=== PATIENT | female | born 1960 | race Caucasian/White ===

== ENCOUNTER 2021-07-05 18:19 | Emergency (ER) | payer MEDICAID, SELFPAY ==
[2021-07-05 18:19] VITALS: BP 136/91; PULSE 80; RESP 18; TEMP 36.7; O2SAT 98; BMI 27.3
[2021-07-05 18:44] VITALS: BP 136/90; PULSE 79; RESP 16; O2SAT 97
--- NOTE | 2021-07-05 18:51 | XR_ITS ---
PROCEDURE INFORMATION: Exam: XR Chest Exam date and time: 07/05/2021 6:51 PM Age: 60 years old Clinical indication: Cough TECHNIQUE: Imaging protocol: XR of the chest. Views: 1 view. Total images: 1 COMPARISON: No relevant prior studies available. FINDINGS: Lungs: Question mild apical hyperlucency, suspect COPD. Pulmonary vasculature grossly normal. No gross pulmonary infiltrates or edema pattern. Mildly increased basilar attenuation felt to be related to extrinsic breast soft tissues. Pleural spaces: No pleural effusion. No pneumothorax. Heart/Mediastinum: Heart size normal. No tracheal/mediastinal shift. Vasculature: Mild aortic ectasia/tortuosity. Bones/joints: No acute osseous abnormalities are identified. IMPRESSION: 1. No acute thoracic process. 2. Suspect COPD.
[2021-07-05 18:57] LABS: Coronavirus 19, PCR Not Detected (NotDetected); Influenza A, PCR Not Detected (NotDetected); Influenza B, PCR Not Detected (NotDetected)
[2021-07-05 19:09] LABS: Basophils % 0.6 % (0.1-2.0); Chloride 101 mmol/L (98-107); Eosinophils # 0.3 K/mm3 (0.0-0.4); Eosinophils % 4.6 % (0.1-12.0); Hematocrit 40.4 % (37.0-47.0); Hemoglobin 13.7 g/dL (12.2-16.2); Lymphocytes # 2.3 K/mm3 (0.7-4.5); Lymphocytes % 35.8 % (10-50); Mean Corpuscular HGB Conc 33.9 g/dL (31.8-35.4); Mean Corpuscular Hemoglobin 28.2 pg (27.0-31.2); Mean Corpuscular Volume 83.2 fl (81-99); Monocytes # 0.3 K/mm3 (0.1-1.0); Monocytes % 5.4 % (1.7-9.3); Neutrophils # 3.4 K/mm3 (1.8-7.8); Neutrophils % 53.6 % (37.0-80.0); Platelet Count 225 K/mm3 (142-424); Potassium 3.9 mmoL/L (3.5-5.1); Red Blood Count 4.85 M/mm3 (4.20-5.40); Red Cell Distribution Width 13.5 % (11.5-17.5); Sodium 142 mmol/L (136-145); White Blood Count 6.4 K/mm3 (4.8-10.8)
[2021-07-05 19:12] LABS: Alanine Aminotransferase 22 U/L (12-78); Albumin Level 4.6 g/dl (3.5-5.0); Albumin/Globulin Ratio 1.6 (1.1-1.8); Alkaline Phosphatase 103 U/L (38-126); Anion Gap 12.9 mEq/L (5-15); Aspartate Amino Transferase 29 U/L (14-36); Bilirubin,Total 0.3 mg/dl (0.2-1.3); Carbon Dioxide 32 mmol/L (22.0-30.0); Globulin 2.8 g/dL (1.3-3.2); Glucose 108 mg/dl (74-100); Total Protein,Serum 7.4 g/dl (6.3-8.2)
[2021-07-05 19:17] LABS: Blood Urea Nitrogen 16 mg/dl (7-17); Creatinine Clearance Estimated 59 mL/min (50-200); Estimated Glomerular Filt Rate 85 ml/min (>60); GFR (African American) 103 ML/MIN (>60)
[2021-07-05 19:34] LABS: Lactic Acid 1.1 mmol/L (0.7-2.1)
[2021-07-05 20:01] VITALS: PULSE 72; PULSE 74
--- NOTE | 2021-07-05 20:20 | HMH.EDGENADL ---
ED Disposition Clinical Impression: COPD exacerbation Disposition: Home, Self-Care Condition on Discharge: Good Instructions: Chronic Obstructive Pulmonary Disease, DI for Shortness of Breath, DI for Chronic Obstructive Pulmonary Disease Additional Instructions: Patient will follow up with primary care physician in 2-3 days for further management. Please continue to drink plenty of water and eat 3 balanced meals a day. please use your inhaler 3-4 puffs every 6 hours for the next 2 days and then use as needed. Please return back to the emergency department for any concerning symptoms such as difficulty breathing, chest pain, inability to eat and drink or any other worsening symptoms. You will be notified of COVID results in 24 hours. Prescriptions: Albuterol Sulfate [Albuterol 0.042% 1.25mg/3mL neb] 1.25 mg IH NEEDED PRN #1 ml PRN Reason: Shortness Of Breath Transmission Status: Received by [facility] Referrals: Florian Correa MD [Primary Care Provider] - Time of Disposition: 20:35 - Critical Care Critical Care Time: No Attestation: On 07/05/21, the high probability of a clinically significant, sudden or life threatening deterioration of the following system(s) required my full and direct attention, intervention and personal management. The time I documented below is in addition to time spent performing reported procedures but includes the following listed in this critical care notation. Medical Decision Making - Medical Records Medical records reviewed: Yes: I reviewed the patient's medical records. - Roland Inquiry Pt receiving controlled substance: No Vital Signs: 07/05/21 18:19 07/05/21 18:44 07/05/21 20:01 Temperature 98.0 F Temperature Source Oral Pulse Rate 79 74 Pulse Rate [Right Radial] 80 Respiratory Rate 18 16 Blood Pressure 136/90 Blood Pressure [Right Arm] 136/91 H Blood Pressure Mean 107 Blood Pressure Mean [Right Arm] 106 Blood Pressure Source [Right Arm] Automatic Cuff Blood Pressure Position [Right Arm] Sitting 02 Sat by Pulse Oximetry 98 97 Oxygen Delivery Method Room Air 07/05/21 20:30 Temperature 98.0 F Temperature Source Oral Pulse Rate 71 Pulse Rate [Right Radial] Respiratory Rate 18 Blood Pressure 137/75 Blood Pressure [Right Arm] Blood Pressure Mean Blood Pressure Mean [Right Arm] Blood Pressure Source [Right Arm] Blood Pressure Position [Right Arm] 02 Sat by Pulse Oximetry Oxygen Delivery Method - Lab Data Lab results reviewed: Yes: I reviewed the patient's lab results. Lab Results 07/05/21 18:29: WBC 6.4, RBC 4.85, Hgb 13.7, Hct 40.4, MCV 83.2, MCH 28.2, MCHC 33.9, RDW 13.5, Plt Count 225, MPV 8.0, Neut % (Auto) 53.6, Lymph % (Auto) 35.8, [place] % (Auto) 5.4, Eos % (Auto) 4.6, Baso % (Auto) 0.6, Neut # (Auto) 3.4, Lymph # (Auto) 2.3, [place] # (Auto) 0.3, Eos # (Auto) 0.3, Baso # (Auto) 0.0 07/05/21 18:29: Sodium 142, Potassium 3.9, Chloride 101, Carbon Dioxide 32 H, Anion Gap 12.9, BUN 16, Creatinine 0.70, Estimated Creat Clear 59, Estimated GFR 85, Est GFR ( Amer) 103, Glucose 108 H, Calcium 9.0, Total Bilirubin 0.3, AST 29, ALT 22, Alkaline Phosphatase 103, Total Protein 7.4, Albumin 4.6, Globulin 2.8, Albumin/Globulin Ratio 1.6 07/05/21 18:29: Lactate 1.1 Result diagrams: 07/05/21 18:29 07/05/21 18:29 Orders (Tests/Meds): ED MEDICATIONS Discontinued Medications Generic Name Dose Route Start Last Admin Trade Name Freq PRN Reason Stop Dose Admin Albuterol/Ipratropium 3 ml 07/05/21 19:44 07/05/21 20:01 Ipratropium/Albuterol 3 Ml [facility] 07/05/21 19:45 3 ml ONCE ONE Administration Dexamethasone Sodium Phosphate 8 mg 07/05/21 19:44 07/05/21 20:07 Dexamethasone 4mg/Ml 1ml Vial IV 07/05/21 19:45 8 mg ONCE ONE Administration ORDERS Category Date Time Status Rapid PCR Covid and Flu A/B Stat Lab 07/05/21 18:29 Received Blood Culture Stat Micro 07/05/21 18: Received Matthew
[2021-07-05 20:30] VITALS: BP 137/75; PULSE 71; RESP 18; TEMP 36.7; O2SAT 97
== END 2021-07-05 21:28 | disposition home or self-care (01) ==
PROVIDERS: Emergency Provider Student in an Organized Health Care Education/Training Program; PCP Family Medicine
DX: J44.1 Chronic obstructive pulmonary disease with (acute) exacerbation (principal); F17.210 Nicotine dependence, cigarettes, uncomplicated; Z20.822 Contact with and (suspected) exposure to COVID-19
CPT/HCPCS: 71045; 80053; 83605; 85025; 87040; 96374; 96375; 99283; C9803; U0003; U0005

== ENCOUNTER 2021-07-13 18:01 | Emergency (ER) | payer MEDICAID, SELFPAY ==
[2021-07-13 18:02] VITALS: BP 140/80; PULSE 85; RESP 18; TEMP 36.9; O2SAT 98; BMI 24.4
--- NOTE | 2021-07-13 18:20 | HMH.EDGENADL ---
ED Disposition Clinical Impression: Seizure disorder Disposition: Home, Self-Care Condition on Discharge: Good Instructions: DI for Seizure Disorder -- Adult Additional Instructions: Continue current medications. Follow-up with Dr. Yost for recurrent seizures or further problems. Additional instructions for SEIZURE OR LOSS OF CONSCIOUSNESS/POSSIBLE SEIZURE: NO DRIVING, BIKE RIDING, SWIMMING, TUB BATHING, LADDERS UNTIL CLEARED BY DOCTOR. RETURN IF SEIZURE RECURS. NO ALCOHOL OR STREET DRUGS. See your physician as soon as possible for follow-up. Return to the emergency department if seizure recurs. Referrals: Florian Correa MD [Referring] - - Critical Care Critical Care Time: No Attestation: On , the high probability of a clinically significant, sudden or life threatening deterioration of the following system(s) required my full and direct attention, intervention and personal management. The time I documented below is in addition to time spent performing reported procedures but includes the following listed in this critical care notation. Medical Decision Making - Roland Inquiry Pt receiving controlled substance: No Vital Signs: 07/13/21 18:02 07/13/21 19:30 Temperature 98.5 F Temperature Source Oral Pulse Rate 82 Pulse Rate [Left Radial] 85 Respiratory Rate 18 Blood Pressure 138/84 Blood Pressure [Right Arm] 140/80 Blood Pressure Mean 102 Blood Pressure Mean [Right Arm] 100 Blood Pressure Source [Right Arm] Automatic Cuff Blood Pressure Position [Right Arm] Sitting 02 Sat by Pulse Oximetry 98 95 Oxygen Delivery Method Room Air - Lab Data Lab Results 07/13/21 18:09: WBC 6.3, RBC 4.87, Hgb 14.0, Hct 42.1, MCV 86.6, MCH 28.8, MCHC 33.3, RDW 13.5, Plt Count 222, MPV 8.5, Neut % (Auto) 52.7, Lymph % (Auto) 35.6, [place] % (Auto) 5.3, Eos % (Auto) 5.2, Baso % (Auto) 1.2, Neut # (Auto) 3.3, Lymph # (Auto) 2.3, [place] # (Auto) 0.3, Eos # (Auto) 0.3, Baso # (Auto) 0.1 07/13/21 18:09: Sodium 140, Potassium 3.4 L, Chloride 101, Carbon Dioxide 29, Anion Gap 13.4, BUN 17, Creatinine 0.70, Estimated Creat Clear 53, Estimated GFR 85, Est GFR ( Amer) 103, Glucose 142 H, Calcium 9.3, Total Bilirubin 0.4, AST 30, ALT 26, Alkaline Phosphatase 99, Total Protein 7.1, Albumin 4.3, Globulin 2.8, Albumin/Globulin Ratio 1.5 Result diagrams: 07/13/21 18:09 07/13/21 18:09 Orders (Tests/Meds): ORDERS Category Date Time Status Levetiracetam (Keppra) Routine Lab 07/13/21 18:09 Received Trop I [Troponin I] Stat Lab 07/13/21 18:09 Received Troponin I Q3H Lab 07/13/21 22:00 Ordered Troponin I Q3H Lab 07/14/21 01:00 Ordered Urinalysis and Microscopic Stat Lab 07/13/21 19:47 Received - CT Data CT Scan: Head, C-Spine Time Received: 19:[address] Reviewed: Yes: I have viewed the radiologist's interpretation Findings Narrative: PROCEDURE INFORMATION: Exam: CT Head Without Contrast Exam date and time: 07/13/2021 6:30 PM Age: 60 years old Clinical indication: Injury or trauma; Fall; Additional info: Seizure, fell and hit head, neck pain TECHNIQUE: Imaging protocol: Computed tomography of the head without contrast. Radiation optimization: All CT scans at this facility use at least one of these dose optimization techniques: automated exposure control; mA and/or kV adjustment per patient size (includes targeted exams where dose is matched to clinical indication); or iterative reconstruction. COMPARISON: No relevant prior studies available. FINDINGS: Brain: No hemorrhage, mass effect or midline shift. Age-related atrophy and chronic white matter ischemic changes, with no evidence of an acute intracranial abnormality. Cerebral ventricles: No ventriculomegaly. Paranasal sinuses: Visualized sinuses are unremarkable. No fluid levels. Mastoid air cells: Visualized mastoid air cells are well aerated. Bones/joints: No acute fracture. Soft tissues: No a
--- NOTE | 2021-07-13 18:30 | CT_ITS ---
PROCEDURE INFORMATION: Exam: CT Head Without Contrast Exam date and time: 07/13/2021 6:30 PM Age: 60 years old Clinical indication: Injury or trauma; Fall; Additional info: Seizure, fell and hit head, neck pain TECHNIQUE: Imaging protocol: Computed tomography of the head without contrast. Radiation optimization: All CT scans at this facility use at least one of these dose optimization techniques: automated exposure control; mA and/or kV adjustment per patient size (includes targeted exams where dose is matched to clinical indication); or iterative reconstruction. COMPARISON: No relevant prior studies available. FINDINGS: Brain: No hemorrhage, mass effect or midline shift. Age-related atrophy and chronic white matter ischemic changes, with no evidence of an acute intracranial abnormality. Cerebral ventricles: No ventriculomegaly. Paranasal sinuses: Visualized sinuses are unremarkable. No fluid levels. Mastoid air cells: Visualized mastoid air cells are well aerated. Bones/joints: No acute fracture. Soft tissues: No acute changes IMPRESSION: 1. No hemorrhage, mass effect or midline shift. 2. Age-related atrophy and chronic white matter ischemic changes, with no evidence of an acute intracranial abnormality.
--- NOTE | 2021-07-13 18:30 | CT_ITS ---
PROCEDURE INFORMATION: Exam: CT Cervical Spine Without Contrast Exam date and time: 07/13/2021 6:30 PM Age: 60 years old Clinical indication: Injury or trauma; Fall; Additional info: Seizure, fell and hit head, neck pain TECHNIQUE: Imaging protocol: Computed tomography images of the cervical spine without contrast. Radiation optimization: All CT scans at this facility use at least one of these dose optimization techniques: automated exposure control; mA and/or kV adjustment per patient size (includes targeted exams where dose is matched to clinical indication); or iterative reconstruction. COMPARISON: CR XR CHEST PORTABLE 07/05/2021 7:07 PM FINDINGS: Bones/joints: There is a nonspecific reversal of the normal cervical lordosis. There is no evidence of acute fracture. Discs/Spinal canal/Neural foramina: The cervical spine demonstrates mild degenerative changes at multiple levels. Disc space narrowing and bilateral neural foraminal narrowing noted C5-C6, C6-C7 and C7-T1. Prevertebral Space: No prevertebral soft tissue swelling is present. Lungs: Lung apices are normal. Soft tissues: Unremarkable. IMPRESSION: 1. There is a nonspecific reversal of the normal cervical lordosis. 2. The cervical spine demonstrates mild degenerative changes at multiple levels. 3. No evidence of acute fracture.
[2021-07-13 18:44] LABS: Basophils # 0.1 K/mm3 (0-0.2); Basophils % 1.2 % (0.1-2.0); Eosinophils # 0.3 K/mm3 (0.0-0.4); Eosinophils % 5.2 % (0.1-12.0); Hematocrit 42.1 % (37.0-47.0); Lymphocytes # 2.3 K/mm3 (0.7-4.5); Lymphocytes % 35.6 % (10-50); Mean Corpuscular HGB Conc 33.3 g/dL (31.8-35.4); Mean Corpuscular Hemoglobin 28.8 pg (27.0-31.2); Mean Corpuscular Volume 86.6 fl (81-99); Mean Platelet Volume 8.5 fl (7.4-10.4); Monocytes # 0.3 K/mm3 (0.1-1.0); Monocytes % 5.3 % (1.7-9.3); Neutrophils # 3.3 K/mm3 (1.8-7.8); Neutrophils % 52.7 % (37.0-80.0); Platelet Count 222 K/mm3 (142-424); Red Blood Count 4.87 M/mm3 (4.20-5.40); Red Cell Distribution Width 13.5 % (11.5-17.5); White Blood Count 6.3 K/mm3 (4.8-10.8)
--- NOTE | 2021-07-13 18:45 | ECG_ITS ---
APPROVED REPORT Exam: Resting ECG HR:81 bpm ECG Measurements Heart Rate 81 AXES KS 132 P 54 QRSd 76 QRS 43 QT 372 T 112 QTc 432 Conclusion Normal sinus rhythm ST & T wave abnormality, consider anterior ischemia Abnormal ECG Electronically signed by : Marco Adrian MD 07/14/2021 12:34:41
[2021-07-13 18:50] LABS: Alanine Aminotransferase 26 U/L (12-78); Albumin Level 4.3 g/dl (3.5-5.0); Albumin/Globulin Ratio 1.5 (1.1-1.8); Alkaline Phosphatase 99 U/L (38-126); Anion Gap 13.4 mEq/L (5-15); Aspartate Amino Transferase 30 U/L (14-36); Bilirubin,Total 0.4 mg/dl (0.2-1.3); Blood Urea Nitrogen 17 mg/dl (7-17); Calcium 9.3 mg/dl (8.4-10.2); Carbon Dioxide 29 mmol/L (22.0-30.0); Chloride 101 mmol/L (98-107); Creatinine Clearance Estimated 53 mL/min (50-200); Estimated Glomerular Filt Rate 85 ml/min (>60); GFR (African American) 103 ML/MIN (>60); Globulin 2.8 g/dL (1.3-3.2); Glucose 142 mg/dl (74-100); Potassium 3.4 mmoL/L (3.5-5.1); Sodium 140 mmol/L (136-145); Total Protein,Serum 7.1 g/dl (6.3-8.2)
[2021-07-13 19:30] VITALS: BP 138/84; PULSE 82; O2SAT 95
[2021-07-13 19:52] LABS: Microscopic, Urine URINE MICROSCOPIC (MICROSCOPIC)
[2021-07-13 20:00] VITALS: BP 128/89; PULSE 76; O2SAT 95
[2021-07-13 20:11] LABS: Troponin I < 0.01 ng/ml (0.00-0.034)
[2021-07-13 20:27] LABS: Appearance,Urine CLEAR (Clear); Bilirubin,Urine Negative (Negative); Blood, Urine Negative (Negative); Color,Urine YELLOW (Yellow); Glucose,Urine (UA) Negative (Negative); Ketones,Urine Negative (Negative); Leukocyte Esterase,Urine Negative (Negative); Nitrate,Urine POSITIVE (Negative); Protein,Urine Negative (Negative); Specific Gravity, Urine >= 1.030 (1.005-1.030); Urobilinogen,Urine 0.2 EU/dl (0.2)
[2021-07-13 20:30] VITALS: BP 138/89; PULSE 71; O2SAT 97
[2021-07-13 20:53] LABS: Bacteria,Urine 3+ /lpf; Squamous Epithelial Cell,Urine Occasional #/hpf (0-5)
[2021-07-13 22:09] VITALS: BP 142/70; PULSE 82; RESP 18; TEMP 37.1; O2SAT 99
[2021-07-18 12:01] LABS: Levetiracetam (Keppra) 26.9 ug/mL (10.0-40.0)
== END 2021-07-13 23:00 | disposition home or self-care (01) ==
PROVIDERS: Emergency Provider Emergency Medicine; PCP Emergency Medicine
DX: G40.909 Epilepsy, unspecified, not intractable, without status epilepticus (principal); Z79.899 Other long term (current) drug therapy
CPT/HCPCS: 70450; 72125; 80053; 80177; 81001; 84484; 85025; 87086; 87088; 87186; 93005; 99283

== ENCOUNTER 2021-07-31 10:31 | Emergency (ER) | payer MEDICAID, SELFPAY ==
[2021-07-31 10:31] VITALS: BP 160/97; PULSE 75; RESP 16; TEMP 36.8; O2SAT 98; BMI 27.3
[2021-07-31 10:33] VITALS: BP 161/97; PULSE 118; RESP 18; O2SAT 98
[2021-07-31 11:00] VITALS: BP 153/97; PULSE 84; RESP 18; O2SAT 98
--- NOTE | 2021-07-31 11:30 | PC.NURSE ---
lab here for blood draw
[2021-07-31 11:51] LABS: Basophils # 0.1 K/mm3 (0-0.2); Basophils % 1.2 % (0.1-2.0); Eosinophils # 0.2 K/mm3 (0.0-0.4); Eosinophils % 1.9 % (0.1-12.0); Hematocrit 46.8 % (37.0-47.0); Hemoglobin 15.3 g/dL (12.2-16.2); Lymphocytes # 1.8 K/mm3 (0.7-4.5); Lymphocytes % 20.7 % (10-50); Mean Corpuscular HGB Conc 32.7 g/dL (31.8-35.4); Mean Corpuscular Hemoglobin 28.7 pg (27.0-31.2); Mean Corpuscular Volume 87.8 fl (81-99); Mean Platelet Volume 7.9 fl (7.4-10.4); Monocytes # 0.4 K/mm3 (0.1-1.0); Monocytes % 4.1 % (1.7-9.3); Neutrophils # 6.1 K/mm3 (1.8-7.8); Neutrophils % 72.1 % (37.0-80.0); Platelet Count 264 K/mm3 (142-424); Red Blood Count 5.34 M/mm3 (4.20-5.40); Red Cell Distribution Width 13.5 % (11.5-17.5); White Blood Count 8.5 K/mm3 (4.8-10.8)
--- NOTE | 2021-07-31 11:58 | HMH.EDGENADL ---
ED Disposition Clinical Impression: Gastroenteritis Disposition: Home, Self-Care Condition on Discharge: Good Instructions: DI for Viral Gastroenteritis -- Adult Referrals: Ned Yost MD [Primary Care Provider] - - Critical Care Critical Care Time: No Attestation: On 07/31/21, the high probability of a clinically significant, sudden or life threatening deterioration of the following system(s) required my full and direct attention, intervention and personal management. The time I documented below is in addition to time spent performing reported procedures but includes the following listed in this critical care notation. Medical Decision Making - Medical Records Medical records reviewed: Yes: I reviewed the patient's medical records. - Roland Inquiry Pt receiving controlled substance: No Vital Signs: 07/31/21 10:31 07/31/21 10:33 07/31/21 11:00 Temperature 98.2 F Temperature Source Oral Pulse Rate 118 H 84 Pulse Rate [Right] 75 Respiratory Rate 16 18 18 Blood Pressure 161/97 H 153/97 H Blood Pressure [Right Arm] 160/97 H Blood Pressure Mean 120 124 Blood Pressure Mean [Right Arm] 118 Blood Pressure Source [Right Arm] Automatic Cuff Blood Pressure Position [Right Arm] Sitting 02 Sat by Pulse Oximetry 98 98 98 Oxygen Delivery Method Room Air 07/31/21 12:01 Temperature Temperature Source Pulse Rate 70 Pulse Rate [Right] Respiratory Rate 18 Blood Pressure 141/82 H Blood Pressure [Right Arm] Blood Pressure Mean 112 Blood Pressure Mean [Right Arm] Blood Pressure Source [Right Arm] Blood Pressure Position [Right Arm] 02 Sat by Pulse Oximetry 96 Oxygen Delivery Method - Lab Data Lab Results 07/31/21 11:05: Sodium 140, Potassium 3.2 L, Chloride 94 L, Carbon Dioxide 38 H, Anion Gap 11.2, BUN 15, Creatinine 0.80, Estimated Creat Clear 59, Estimated GFR 73, Est GFR ( Amer) 88, Glucose 125 H, Calcium 9.2, Total Bilirubin 1.6 H, AST 39 H, ALT 24, Alkaline Phosphatase 112, Total Protein 7.7, Albumin 4.7, Globulin 3.0, Albumin/Globulin Ratio 1.6, Lipase 63 07/31/21 11:35: WBC 8.5, RBC 5.34, Hgb 15.3, Hct 46.8, MCV 87.8, MCH 28.7, MCHC 32.7, RDW 13.5, Plt Count 264, MPV 7.9, Neut % (Auto) 72.1, Lymph % (Auto) 20.7, [place] % (Auto) 4.1, Eos % (Auto) 1.9, Baso % (Auto) 1.2, Neut # (Auto) 6.1, Lymph # (Auto) 1.8, [place] # (Auto) 0.4, Eos # (Auto) 0.2, Baso # (Auto) 0.1 Result diagrams: 07/31/21 11:35 07/31/21 11:05 - Reevaluation(s) Time: 12:21 Reevaluation #1: On reexamination, the patient is feeling better. Repeat abdominal examination is benign. No acute abdomen. Repeat neuro exam does not show any abnormalities. Is been no seizure-like activity in the emergency department. Patient will follow up with PCP. Given strict return precautions. Verbalized understanding. Medical Decision Narrative: 60-year-old female presenting with some diarrhea. Patient has a benign abdominal examination. No evidence of acute abdomen. Patient neurologic exam is normal. She is not having any episodes of seizure on the emergency department. Symptoms are not typical with acute seizure. Work-up initiated. General Adult HPI - General Chief complaint: Nausea/Vomiting/Diarrhea Stated complaint: diarrhea Time Seen by Provider: 07/31/21 10:40 Mode of Arrival: EMS Limitations: No Limitations Description of Symptoms (Recalled from ER Triage Doc. by RN): Pt has multiple complaints including feeling dizzy, diarrhea, and just not feeling well for the past 2 weeks. She comes in today because she says she had more diarrhea than usual. No complaints of pain - History of Present Illness HPI narrative: Is a 60-year-old female presented to the emergency department with multiple complaints. Patient has a history of COPD and questionable seizure disorder. She states that this morning she may have had a seizure. She states that she was feeling very weak and like she was going to pass o
[2021-07-31 12:01] VITALS: BP 141/82; PULSE 70; RESP 18; O2SAT 96
[2021-07-31 12:01] LABS: Alanine Aminotransferase 24 U/L (12-78); Albumin Level 4.7 g/dl (3.5-5.0); Albumin/Globulin Ratio 1.6 (1.1-1.8); Alkaline Phosphatase 112 U/L (38-126); Anion Gap 11.2 mEq/L (5-15); Aspartate Amino Transferase 39 U/L (14-36); Bilirubin,Total 1.6 mg/dl (0.2-1.3); Blood Urea Nitrogen 15 mg/dl (7-17); Calcium 9.2 mg/dl (8.4-10.2); Carbon Dioxide 38 mmol/L (22.0-30.0); Chloride 94 mmol/L (98-107); Creatinine Clearance Estimated 59 mL/min (50-200); Estimated Glomerular Filt Rate 73 ml/min (>60); GFR (African American) 88 ML/MIN (>60); Glucose 125 mg/dl (74-100); Lipase 63 U/L (23-300); Potassium 3.2 mmoL/L (3.5-5.1); Sodium 140 mmol/L (136-145); Total Protein,Serum 7.7 g/dl (6.3-8.2)
[2021-07-31 12:30] VITALS: BP 130/85; PULSE 74; RESP 18; O2SAT 98
--- NOTE | 2021-07-31 12:37 | PC.NURSE ---
Attempted to call Yrn Frankel multiple times with no answer. Contacted [facility] and advised them pt was ready for d/c she said she would try and get a hold of yrn frankel or send someone up to get resident. Resident updated on this.
[2021-07-31 12:49] VITALS: BP 130/85; PULSE 87; RESP 18; TEMP 36.8; O2SAT 100
== END 2021-07-31 12:50 | disposition home or self-care (01) ==
PROVIDERS: Emergency Provider Emergency Medicine; PCP Emergency Medicine
DX: K52.9 Noninfective gastroenteritis and colitis, unspecified (principal); J44.9 Chronic obstructive pulmonary disease, unspecified
CPT/HCPCS: 36415; 80053; 83690; 85025; 99282

== ENCOUNTER 2021-08-02 13:21 | Emergency (ER) | payer MEDICAID, SELFPAY ==
[2021-08-02 13:22] VITALS: BP 144/87; BP 180/106; PULSE 84; PULSE 96; RESP 18; TEMP 36.9; O2SAT 96; O2SAT 97; BMI 32.2
[2021-08-02 13:25] VITALS: BMI 20.7
--- NOTE | 2021-08-02 13:33 | HMH.EDGENADL ---
ED Disposition Clinical Impression: Depression Qualifiers: Depression Type: major depressive disorder Major depression recurrence: recurrent Active/Remission status: currently active Major depression episode severity: severe Psychotic features: with psychotic features Qualified Code(s): F33.3 - Major depressive disorder, recurrent, severe with psychotic symptoms Disposition: Home, Self-Care Condition on Discharge: Good Instructions: DI for Depression -- Adult Additional Instructions: Dr. Yost will see you tomorrow morning for further care and medication changes if needed. Return to the emergency department if suicidal ideation or plan. Referrals: Ned Yost MD [Primary Care Provider] - - Critical Care Critical Care Time: No Attestation: On 08/02/21, the high probability of a clinically significant, sudden or life threatening deterioration of the following system(s) required my full and direct attention, intervention and personal management. The time I documented below is in addition to time spent performing reported procedures but includes the following listed in this critical care notation. Medical Decision Making - Medical Records Medical records reviewed: Yes: I reviewed the patient's medical records. MR Comment: Seen here 2 days ago for possible seizure, gastroenteritis symptoms. Work-up unremarkable at that time. - Roland Inquiry Pt receiving controlled substance: No Vital Signs: 08/02/21 13:22 Temperature 98.5 F Temperature Source Oral Pulse Rate [Radial] 96 H Respiratory Rate 18 Blood Pressure [Right Arm] 180/106 H Blood Pressure Mean [Right Arm] 130 Blood Pressure Position [Right Arm] Sitting 02 Sat by Pulse Oximetry 96 Oxygen Delivery Method Room Air - Physician Consults Physician Consulted: Ritika Time: 13:50 Reason -: Pt condition Comment/Response: No work-up needed. Discharge back to [facility] and he will see her tomorrow morning for further care. Medical Decision Narrative: Patient appears depressed, but states she is not suicidal. Case discussed with Dr. Yost. He advises to discharge the patient back to [facility]. He will be there tomorrow morning and will speak with the patient and adjust her medications at that time. No work-up needed for her dyspnea, which appears anxiety related. Pulse ox 99% on room air with normal heart rate. Lung sounds are clear. Pulse ox obtained at [facility] appears to have been machine error, as she was 95 when EMS arrived and is 97 to 99% on room air here. General Adult HPI - General Chief complaint: Shortness of Breath/Dyspnea Stated complaint: SOB Time Seen by Provider: 08/02/21 13:33 - History of Present Illness HPI narrative: The patient is brought in by ambulance from [facility]. Reportedly she is brought in for reported shortness of breath, but her only complaint to me is that she is depressed and is hearing voices. She told the nurse before my arrival that she feels short of breath related to anxiety and hyperventilation. She says that she has a history of depression and anxiety. She is medicated for both but does not feel it is working. She says she has previously been admitted to [facility] years ago. She is a new resident of [facility] in April 2021. She says she feels depressed and is hearing voices for the past 2 to 3 days. She says the voices tell her to kill herself but she does not feel the impulse to act on the voices for to hurt or kill herself. She denies having any previous suicide attempts. She says she has heard voices most of her life but they went away for years and came back a few days ago. Denies alcohol or drug use. Staff at [facility] evaluated her and stated that her pulse ox was 80% and not coming up, therefore she was sent to the emergency department. When EMS arrived at [facility], her pulse ox was 95% on room air and vital signs were unremarkable. She was complaining of depression and wa
[2021-08-02 14:36] VITALS: BP 139/78; PULSE 78; RESP 16; TEMP 36.7; O2SAT 97
== END 2021-08-02 14:38 | disposition home or self-care (01) ==
PROVIDERS: Emergency Provider Emergency Medicine; PCP Emergency Medicine
DX: F33.3 Major depressive disorder, recurrent, severe with psychotic symptoms (principal); R06.02 Shortness of breath
CPT/HCPCS: 99282

== ENCOUNTER → 2021-10-19 12:20 | Outpatient (CLI) | payer MEDICAID, SELFPAY ==
[2021-10-19 15:17] LABS: Microscopic, Urine URINE MICROSCOPIC (MICROSCOPIC)
[2021-10-19 17:45] LABS: Appearance,Urine CLEAR (Clear); Bilirubin,Urine Negative (Negative); Blood, Urine Negative (Negative); Color,Urine YELLOW (Yellow); Glucose,Urine (UA) Negative (Negative); Ketones,Urine Negative (Negative); Leukocyte Esterase,Urine Negative (Negative); Nitrate,Urine Negative (Negative); Protein,Urine Negative (Negative); Urobilinogen,Urine 0.2 EU/dl (0.2)
[2021-10-19 18:04] LABS: Bacteria,Urine Trace /lpf; Squamous Epithelial Cell,Urine Occasional #/hpf (0-5); WBC,Urine Occasional #/hpf (0-3)
== END ==
PROVIDERS: PCP Emergency Medicine; Visit Provider Emergency Medicine
DX: N39.0 Urinary tract infection, site not specified (principal)
CPT/HCPCS: 81001

== ENCOUNTER 2021-10-25 19:02 | Observation (INO) | payer MEDICAID, SELFPAY ==
[2021-10-25] VITALS (8 sets, daily range): BP systolic 132–177; BP diastolic 90–113; PULSE 88–96; RESP 18–20; TEMP 36.7–36.8; O2SAT 95–97; BMI 24.9
--- NOTE | 2021-10-25 19:24 | CT_ITS ---
PROCEDURE INFORMATION: Exam: CT Head Without Contrast Exam date and time: 10/25/2021 7:33 PM Age: 61 years old Clinical indication: Other: Confusion TECHNIQUE: Imaging protocol: Computed tomography of the head without contrast. Radiation optimization: All CT scans at this facility use at least one of these dose optimization techniques: automated exposure control; mA and/or kV adjustment per patient size (includes targeted exams where dose is matched to clinical indication); or iterative reconstruction. COMPARISON: CT HEAD/BRAIN WO CON 07/13/2021 6:48 PM FINDINGS: Brain: Mild stable diffuse cerebral atrophy is consistent with this patient's age. There is stable mild heterogeneity and patchy areas of bilateral decreased attenuation of the white matter consistent with chronic white matter ischemic change. The visualized basilar cisterns are patent. There is no evidence of mass, mass effect or midline shift. There is no evidence of acute hemorrhage within the brain parenchyma or the subarachnoid space. There are a few small foci of low attenuation in the left basal ganglia which appear overall stable suggesting chronic small vessel ischemic sequela. Cerebral ventricles: The ventricular system is normal in size and distribution. Paranasal sinuses: There is minor mucoperiosteal thickening involving the inferior maxillary sinuses.The visualized portions of the sinuses are otherwise clear.There is mild rightward nasal septal deviation. 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 Mastoid air cells: The mastoid sinuses are normal. Bones/joints: There is no evidence of acute fracture. . Soft tissues: No significant soft tissue edema. Dental: Dental amalgam artifact limits evaluation of adjacent structures. IMPRESSION: Stable head CT.
[2021-10-25 19:43] LABS: Chloride 104 mmol/L (98-107); Potassium 3.8 mmoL/L (3.5-5.1); Sodium 140 mmol/L (136-145)
[2021-10-25 19:44] LABS: Basophils % 0.6 % (0.1-2.0); Eosinophils # 0.1 K/mm3 (0.0-0.4); Eosinophils % 2.1 % (0.1-12.0); Hematocrit 39.4 % (37.0-47.0); Hemoglobin 13.7 g/dL (12.2-16.2); Lymphocytes # 1.6 K/mm3 (0.7-4.5); Lymphocytes % 27.7 % (10-50); Mean Corpuscular HGB Conc 34.7 g/dL (31.8-35.4); Mean Corpuscular Hemoglobin 30.4 pg (27.0-31.2); Mean Corpuscular Volume 87.6 fl (81-99); Mean Platelet Volume 8.8 fl (7.4-10.4); Monocytes # 0.3 K/mm3 (0.1-1.0); Monocytes % 5.7 % (1.7-9.3); Neutrophils # 3.6 K/mm3 (1.8-7.8); Neutrophils % 63.9 % (37.0-80.0); Platelet Count 193 K/mm3 (142-424); Red Cell Distribution Width 14.1 % (11.5-17.5); White Blood Count 5.7 K/mm3 (4.8-10.8)
[2021-10-25 19:46] LABS: Alanine Aminotransferase 19 U/L (12-78); Albumin Level 4.3 g/dl (3.5-5.0); Albumin/Globulin Ratio 1.8 (1.1-1.8); Alkaline Phosphatase 76 U/L (38-126); Anion Gap 10.8 mEq/L (5-15); Aspartate Amino Transferase 27 U/L (14-36); Blood Urea Nitrogen 13 mg/dl (7-17); Calcium 8.8 mg/dl (8.4-10.2); Carbon Dioxide 29 mmol/L (22.0-30.0); Creatinine Clearance Estimated 61 mL/min (50-200); Estimated Glomerular Filt Rate 73 ml/min (>60); GFR (African American) 88 ML/MIN (>60); Globulin 2.4 g/dL (1.3-3.2); Glucose 104 mg/dl (74-100); Total Protein,Serum 6.7 g/dl (6.3-8.2)
--- NOTE | 2021-10-25 19:50 | PC.NURSE ---
Notified radiology to change ordering provider to Claudia Chapman MD.
[2021-10-25 19:52] LABS: C-Reactive Protein < 0.3 mg/L (0-4)
--- NOTE | 2021-10-25 20:28 | XR_ITS ---
PROCEDURE INFORMATION: Exam: XR Chest Exam date and time: 10/25/2021 8:36 PM Age: 61 years old Clinical indication: Cough TECHNIQUE: Imaging protocol: XR of the chest. Views: 1 view. COMPARISON: CR XR CHEST PORTABLE 07/05/2021 7:07 PM FINDINGS: Lungs: Minimal regions of parenchymal scarring left lung base. Overall appearance not significantly changed. Pleural spaces: Unremarkable. No pleural effusion. No pneumothorax. Heart/Mediastinum: Unremarkable. No cardiomegaly. Bones/joints: Unremarkable. IMPRESSION: No evidence of acute cardiopulmonary disease.
[2021-10-25 20:39] LABS: Erythrocyte Sedimentation Rate 10 mm/hr (0-30)
[2021-10-25 20:41] LABS: Procalcitonin < 0.030 ng/mL (0.0-2.0)
[2021-10-25 20:49] LABS: Microscopic, Urine URINE MICROSCOPIC (MICROSCOPIC)
[2021-10-25 20:57] LABS: Appearance,Urine CLOUDY (Clear); Blood, Urine Negative (Negative); Color,Urine DK YELLOW (Yellow); Glucose,Urine (UA) Negative (Negative); Ketones,Urine 1+ (Negative); Leukocyte Esterase,Urine Negative (Negative); Nitrate,Urine POSITIVE (Negative); Protein,Urine TRACE (Negative); Specific Gravity, Urine >= 1.030 (1.005-1.030)
[2021-10-25 21:18] LABS: Bilirubin,Urine 1+ (Negative)
[2021-10-25 21:20] LABS: Thyroid Stimulating Hormone 4.54 uIU/mL (0.465-4.68)
[2021-10-25 21:37] LABS: Bacteria,Urine 1+ /lpf; RBC,Urine Occasional #/hpf (0-3)
--- NOTE | 2021-10-25 21:39 | PC.NURSE ---
Spoke with Nicole at the [facility] to update facility on patient condition.
--- NOTE | 2021-10-25 22:17 | HMH.EDGENADL ---
ED Disposition Clinical Impression: UTI (urinary tract infection) Qualifiers: Urinary tract infection type: site unspecified Hematuria presence: without hematuria Qualified Code(s): N39.0 - Urinary tract infection, site not specified Disposition: Admitted as Observation Condition on Discharge: Fair - Critical Care Critical Care Time: No Attestation: On 10/25/21, the high probability of a clinically significant, sudden or life threatening deterioration of the following system(s) required my full and direct attention, intervention and personal management. The time I documented below is in addition to time spent performing reported procedures but includes the following listed in this critical care notation. Medical Decision Making - Roland Inquiry Pt receiving controlled substance: No Vital Signs: 10/25/21 19:18 10/25/21 20:02 10/25/21 20:30 Temperature 98.2 F Temperature Source Oral Pulse Rate 95 H 96 H Pulse Rate [Apical] 95 H Respiratory Rate 18 Blood Pressure 159/103 H 168/99 H Blood Pressure [Right Arm] 177/113 H Blood Pressure Mean Blood Pressure Mean [Right Arm] 134 Blood Pressure Source [Right Arm] Automatic Cuff Blood Pressure Position [Right Arm] Sitting 02 Sat by Pulse Oximetry 97 95 96 Oxygen Delivery Method Room Air Room Air Room Air 10/25/21 21:00 10/25/21 21:30 10/25/21 22:00 Temperature Temperature Source Pulse Rate 94 H Pulse Rate [Apical] Respiratory Rate Blood Pressure 168/103 H 162/96 H 177/93 H Blood Pressure [Right Arm] Blood Pressure Mean 124 121 Blood Pressure Mean [Right Arm] Blood Pressure Source [Right Arm] Blood Pressure Position [Right Arm] 02 Sat by Pulse Oximetry 97 Oxygen Delivery Method Room Air 10/25/21 22:29 10/25/21 22:30 10/26/21 01:30 Temperature 98.1 F Temperature Source Pulse Rate 88 Pulse Rate [Apical] Respiratory Rate 20 Blood Pressure 132/90 139/92 H 163/101 H Blood Pressure [Right Arm] Blood Pressure Mean 118 119 Blood Pressure Mean [Right Arm] Blood Pressure Source [Right Arm] Blood Pressure Position [Right Arm] 02 Sat by Pulse Oximetry Oxygen Delivery Method Room Air 10/26/21 01:37 10/26/21 02:27 10/26/21 02:58 Temperature 98.2 F Temperature Source Oral Pulse Rate Pulse Rate [Apical] 76 Respiratory Rate 17 Blood Pressure Blood Pressure [Right Arm] 161/94 H Blood Pressure Mean Blood Pressure Mean [Right Arm] 116 Blood Pressure Source [Right Arm] Automatic Cuff Blood Pressure Position [Right Arm] Sitting 02 Sat by Pulse Oximetry 96 95 Oxygen Delivery Method Room Air Room Air Room Air 10/26/21 03:39 Temperature 98.2 F Temperature Source Oral Pulse Rate Pulse Rate [Apical] 66 Respiratory Rate 17 Blood Pressure Blood Pressure [Right Arm] 126/64 Blood Pressure Mean Blood Pressure Mean [Right Arm] 84 Blood Pressure Source [Right Arm] Automatic Cuff Blood Pressure Position [Right Arm] Supine 02 Sat by Pulse Oximetry 97 Oxygen Delivery Method Room Air - Lab Data Lab Results 10/25/21 19:30: WBC 5.7, RBC 4.50, Hgb 13.7, Hct 39.4, MCV 87.6, MCH 30.4, MCHC 34.7, RDW 14.1, Plt Count 193, MPV 8.8, Neut % (Auto) 63.9, Lymph % (Auto) 27.7, [place] % (Auto) 5.7, Eos % (Auto) 2.1, Baso % (Auto) 0.6, Neut # (Auto) 3.6, Lymph # (Auto) 1.6, [place] # (Auto) 0.3, Eos # (Auto) 0.1, Baso # (Auto) 0.0, ESR 10 10/25/21 19:30: Sodium 140, Potassium 3.8, Chloride 104, Carbon Dioxide 29, Anion Gap 10.8, BUN 13, Creatinine 0.80, Estimated Creat Clear 61, Estimated GFR 73, Est GFR ( Amer) 88, Glucose 104 H, Calcium 8.8, Total Bilirubin 1.0, AST 27, ALT 19, Alkaline Phosphatase 76, C-Reactive Protein < 0.3, Total Protein 6.7, Albumin 4.3, Globulin 2.4, Albumin/Globulin Ratio 1.8, Procalcitonin < 0.030 10/25/21 19:30: Free T4 1.38 10/25/21 19:30: TSH 4.54 10/25/21 20:46: Urine Color Dk yellow, Urine Appearance Cloudy, Urine pH 5.0, Ur Specific [place] >
[2021-10-25 22:25] LABS: Free T4 (Free Thyroxine) 1.38 ng/dl (0.78-2.19)
--- NOTE | 2021-10-25 22:34 | PC.NURSE ---
Paged Dr. Adrian
--- NOTE | 2021-10-25 22:35 | PC.NURSE ---
RAVI DAY speaking to Dr. Adrian
--- NOTE | 2021-10-25 22:40 | PC.NURSE ---
Notified house of pt admission and need for bed assignment
[2021-10-26 01:30] VITALS: BP 163/101
[2021-10-26 01:37] VITALS: BP 161/94; PULSE 76; RESP 17; TEMP 36.8; O2SAT 96; BMI 21.5
--- NOTE | 2021-10-26 01:40 | PC.NURSE ---
patient up to floor via stretcher @ this time.
[2021-10-26 01:59] LABS: Lactic Acid 0.7 mmol/L (0.7-2.1)
[2021-10-26 02:00] LABS: Coronavirus 19, PCR Not Detected (NotDetected); Influenza A, PCR Not Detected (NotDetected); Influenza B, PCR Not Detected (NotDetected)
[2021-10-26 02:58] VITALS: O2SAT 95
--- NOTE | 2021-10-26 03:29 | PC.NURSE ---
has completed admit orders. Confirmed with [facility] RN, Stephanie ALEMAN, that orders processed correctly. She stated she had the orders.
[2021-10-26 03:39] VITALS: BP 126/64; PULSE 66; RESP 17; TEMP 36.8; O2SAT 97
[2021-10-26 06:31] LABS: Chloride 105 mmol/L (98-107); Potassium 3.6 mmoL/L (3.5-5.1); Sodium 139 mmol/L (136-145)
[2021-10-26 06:34] LABS: Anion Gap 8.6 mEq/L (5-15); Blood Urea Nitrogen 13 mg/dl (7-17); Carbon Dioxide 29 mmol/L (22.0-30.0); Creatinine Clearance Estimated 53 mL/min (50-200); Estimated Glomerular Filt Rate 85 ml/min (>60); GFR (African American) 103 ML/MIN (>60)
[2021-10-26 06:35] LABS: Calcium 8.5 mg/dl (8.4-10.2); Glucose 99 mg/dl (74-100)
[2021-10-26 06:36] LABS: Basophils % 0.6 % (0.1-2.0); Eosinophils # 0.1 K/mm3 (0.0-0.4); Eosinophils % 2.1 % (0.1-12.0); Hematocrit 39.8 % (37.0-47.0); Hemoglobin 13.4 g/dL (12.2-16.2); Lymphocytes # 1.6 K/mm3 (0.7-4.5); Lymphocytes % 35.2 % (10-50); Mean Corpuscular HGB Conc 33.7 g/dL (31.8-35.4); Mean Corpuscular Hemoglobin 29.8 pg (27.0-31.2); Mean Corpuscular Volume 88.3 fl (81-99); Mean Platelet Volume 8.2 fl (7.4-10.4); Monocytes # 0.3 K/mm3 (0.1-1.0); Monocytes % 5.9 % (1.7-9.3); Neutrophils # 2.5 K/mm3 (1.8-7.8); Neutrophils % 56.3 % (37.0-80.0); Platelet Count 185 K/mm3 (142-424); White Blood Count 4.5 K/mm3 (4.8-10.8)
--- NOTE | 2021-10-26 06:51 | PC.NURSE ---
Pt alert to self and situation. Pt is slow to answer questions. Pt has not voiced any complaints to staff t/o shift but has called out multiple times asking for someone to sit in the room with her. Attempted to get in touch with Grant Mcwilliams, state guardian. Office opens at 0800, will pass in report. Pt currently resting comfortably in bed. Call light within reach.
[2021-10-26 07:21] VITALS: BP 162/88; PULSE 79; RESP 14; TEMP 36.7; O2SAT 97
[2021-10-26 08:00] VITALS: O2SAT 97
--- NOTE | 2021-10-26 09:03 | HMH.PHAVTE ---
[facility] Pharmacy VTE Monitoring - Patient Demographics Admission date: 10/26/21 Report Date: 10/26/21 Time: 09:03 Allergies/Adverse Reactions: Patient Allergies codeine Allergy (Verified 10/26/21 04:55) omeprazole Allergy (Verified 10/26/21 04:55) quetiapine [From Seroquel] Allergy (Verified 10/26/21 04:55) Height: 1.63 m Weight: 57.243 kg Patient Problems: Current Active Problems UTI (urinary tract infection) (Acute) - VTE Risk Labs: VTE Related Lab Results Hgb 13.4 g/dL (12.2-16.2) 10/26/21 06:02 Hct 39.8 % (37.0-47.0) 10/26/21 06:02 Plt Count 185 K/mm3 (142-424) 10/26/21 06:02 BUN 13 mg/dl (7-17) 10/26/21 06:02 Creatinine 0.70 mg/dl (0.52-1.04) 10/26/21 06:02 Estimated Creat Clear 53 mL/min (50-200) 10/26/21 06:02 Was VTE Risk Assessment Performed: No Clinical Trial Participant: No - Prophylaxis VTE Prophylaxis Ordered?: Yes Types of VTE Prophylaxis: TEDS Knee High Location of Applied Device: Bilateral Lower Extremeties
--- NOTE | 2021-10-26 09:52 | HMH.PHAINT ---
Home medication list was verified using M claim history and patients home pharmacy.
--- NOTE | 2021-10-26 10:11 | HMH.HPDC ---
General - General Admission date:: 10/26/21 Discharge date: 10/26/21 *Admission Date: 10/26/21 *History of present illness: Patient is a 61-year-old female presenting to the emergency department with history of urinary tract infection on Levaquin since 10/20/2021 stating that she is not having any fevers today, with patient stating that she is here with bilateral lower extremity numbness and weakness yesterday and today that she states is since resolved. Denies any trauma, denies any vomiting, diarrhea or other constitutional symptoms. Patient states that over the past several months she has felt more forgetful and feels that she might have Alzheimer's. She states that she lives at [facility] and states that she is here today because due to the leg numbness and weakness, also stating that her roommate was driving me nuts. Patient knows that she is in the hospital and knows her name and her birthdate but is not oriented to the specific hospital or the president and is not able to provide her past medical history or what medication she regularly takes. [facility] History I have reviewed the patient's past medical history: Yes Medical History: Reports:: Seizures *Have you ever received a pneumonia vaccine?: No *Have you received a flu vaccine this season?: Yes - *Social History Smoking Status: Never smoker Alcohol Intake: never *Occupational Status:: unemployed, disabled *Travel in the last 8 weeks: None Family Hx:: Unable to obtain Review of Systems - Review of Systems Review of systems:: pertinent systems reviewed and negative unless documented below - Constitutional Reports weakness, Denies body ache(s), Denies excessive sweating - Eyes Denies blurry vision, Denies double vision - ENT Denies bleeding gums, Denies headache(s) - *Cardiovascular Reports shortness of breath, Denies chest pain - *Respiratory Reports cough, Reports shortness of breath, Denies change in phlegm color - *Gastrointestinal Reports abdominal pain - *Musculoskeletal Denies joint pain, Denies back pain - Integumentary/Breasts Denies bleeding lesions, Denies yellowing of the skin - Psychiatric Denies change in appetite, Denies difficulty concentrating - Endocrine Denies cold intolerance, Denies excessive sweating - Hematologic/Lymphatic Denies easy bleeding, Denies easy bruising - Allergic/Immunologic Denies GI upset with certain foods, Denies hives Exam Vital signs and Labs for Last 24 Hours: Temp Pulse Resp BP Pulse Ox 98.1 F 79 14 162/88 H 97 10/26/21 07:21 10/26/21 07:21 10/26/21 07:21 10/26/21 07:21 10/26/21 07:21 Laboratory Results - last 24 hr 10/25/21 19:30: WBC 5.7, RBC 4.50, Hgb 13.7, Hct 39.4, MCV 87.6, MCH 30.4, MCHC 34.7, RDW 14.1, Plt Count 193, MPV 8.8, Neut % (Auto) 63.9, Lymph % (Auto) 27.7, [place] % (Auto) 5.7, Eos % (Auto) 2.1, Baso % (Auto) 0.6, Neut # (Auto) 3.6, Lymph # (Auto) 1.6, [place] # (Auto) 0.3, Eos # (Auto) 0.1, Baso # (Auto) 0.0, ESR 10 10/25/21 19:30: Sodium 140, Potassium 3.8, Chloride 104, Carbon Dioxide 29, Anion Gap 10.8, BUN 13, Creatinine 0.80, Estimated Creat Clear 61, Estimated GFR 73, Est GFR ( Amer) 88, Glucose 104 H, Calcium 8.8, Total Bilirubin 1.0, AST 27, ALT 19, Alkaline Phosphatase 76, C-Reactive Protein < 0.3, Total Protein 6.7, Albumin 4.3, Globulin 2.4, Albumin/Globulin Ratio 1.8, Procalcitonin < 0.030 10/25/21 19:30: Free T4 1.38 10/25/21 19:30: TSH 4.54 10/25/21 20:46: Urine Color Dk yellow, Urine Appearance Cloudy, Urine pH 5.0, Ur Specific [place] >= 1.030, Urine Protein Trace, Urine Glucose (UA) Negative, Urine Ketones 1+, Urine Blood Negative, Urine Nitrate Positive, Urine Bilirubin 1+ A, Urine Urobilinogen 1.0, Ur Leukocyte Esterase Negative, Urine RBC Occasional, Urine WBC 5-10, Ur Squamous Epith Cells 3-5, Urine Bacteria 1+ 10/26/21 06:02: WBC 4.5 L, RBC 4.50, Hgb 13.4, Hct 39.8, MCV 88.3, MCH 29.8, MCHC 33.7, RDW 14.0, Plt Count 185, MPV 8.2, Neut % (Auto) 56.3,
--- NOTE | 2021-10-26 10:13 | SW/DCPLANNER ---
Addendum entered by Margot Holguin 10/26/21 12:01: Due to patient not being established with [facility] Rosa fernandes/ [facility] stated they will transport this patient back to [facility] today. Original Note: This patient currently resides at [facility]. Patient will have PT/OT evaluation today then will discharge back to [facility]. I have updated Ulisses fernandes/ [facility] regarding this plan.
--- NOTE | 2021-10-26 11:30 | HMH.PTEV ---
Physical Therapy Evaluation Rehab PT IP Evaluation Start: 10/26/21 10:41 Freq: .once Status: Active Protocol: Document 10/26/21 11:00 SUE (Rec: 10/26/21 11:30 SUE [id number]) Subjective/History History History Pt admitted from [facility] for c/o weakness in legs Subjective Subjective Pt standing upon entering room, donning sweat jacket Rehab PT IP Eval Objective Appearance Patient Behavior Cooperative Patient Orientation Place,Name,Birthday,Year Difficulty following instructions none Speech Pattern Appropriate,Delayed Ambulation Patient Able to Ambulate Yes Ambulation Observation IP General Gait Pattern Observation No Deviations/Normal Ambulation Distance (feet) 50 Ambulation Assistive Device None Ambulation Ability Independent Balance Sitting Balance Steady, safe Standing Balance Narrow stance w/o support Dynamic Standing Balance Ability Good Rehab PT IP prob,goals,plan Problems Date of Evaluation: 10/26/21 Rehab Potential Rehab Potential Innapropriate for Skilled Therapy Discharge Plan PT Discharge Plan Pt has no skilled therapy needs at this time - pt is safe to return to home upon DC from [facility] G -code Required No PHYSICIAN CERTIFICATION: I certify the specified therapy services for Stephanie Jolley are required, authorized, and reviewed every 30 days.
--- NOTE | 2021-10-27 14:57 | CARE MANAGER ---
Follow-up phone call today with [facility] staff, they state patient is doing well and has no acute needs at this time.
== END 2021-10-26 12:40 | disposition home or self-care (01) ==
LOC: ER 20:29 → 2ND 10-26 04:41
PROVIDERS: Admitting Provider Internal Medicine Adolescent Medicine; Emergency Provider Student in an Organized Health Care Education/Training Program; PCP Emergency Medicine; Visit Provider Emergency Medicine
DX: N39.0 Urinary tract infection, site not specified (principal); Z79.899 Other long term (current) drug therapy; Z20.822 Contact with and (suspected) exposure to COVID-19
CPT/HCPCS: 70450; 71045; 80048; 80053; 81001; 83605; 84145; 84439; 84443; 85025; 85651; 86140; 87040; 87086; 99285; C9803; G0378; J0696; U0003; U0005

== ENCOUNTER 2022-11-18 14:10 | Emergency (ER) | payer MEDICAID, SELFPAY ==
[2022-11-18 14:15] VITALS: BP 143/89; PULSE 90; RESP 20; TEMP 36.5; O2SAT 95; BMI 26.4
--- NOTE | 2022-11-18 14:25 | XR_ITS ---
PROCEDURE INFORMATION: Exam: XR Right Hip Exam date and time: 11/18/2022 2:26 PM Age: 62 years old Clinical indication: Injury or trauma; Fall; Sprain or strain; Right; Hip; Injury date: 2 months ago; Additional info: Right hip pain TECHNIQUE: Imaging protocol: Radiologic exam of the right hip. Views: 2 or 3 views hip with pelvis when performed. COMPARISON: No relevant prior studies available. FINDINGS: Bones/joints: No acute fracture identified. Right hip joint is intact. Mild degenerative changes. Soft tissues: Unremarkable. IMPRESSION: No acute osseous abnormality. If symptoms persists, consider CT or MRI.
--- NOTE | 2022-11-18 14:25 | XR_ITS ---
PROCEDURE INFORMATION: Exam: XR Lumbosacral Spine Exam date and time: 11/18/2022 2:29 PM Age: 62 years old Clinical indication: Injury or trauma; Fall; Sprain or strain, lumbar ligaments; Injury date: 2 mos ago; Additional info: Right hip pain TECHNIQUE: Imaging protocol: Radiologic exam of the lumbosacral spine. Views: 2 or 3 views. COMPARISON: CR Hip R 11/18/2022 2:26 PM FINDINGS: Bones/joints: No acute fracture identified. Lumbar vertebral body heights are maintained. Mild grade 1 anterolisthesis of L4 on L5. Alignment is otherwise maintained. Mild multilevel joint space narrowing, moderate posterior narrowing at L5-S1. Facet arthropathy most notably of the lower lumbar spine. Mild chronic appearing anterior wedging T11. Soft tissues: Unremarkable. Organs: Cholecystectomy clips. Vasculature: Calcified aortic atherosclerosis. IMPRESSION: 1. Degenerative changes of the lumbar spine with no acute osseous abnormality. If symptoms persist, consider CT or MRI. 2. Mild anterior wedging of T11 favored to be chronic, correlate clinically.
--- NOTE | 2022-11-18 14:27 | HMH.EDGENADL ---
Discharge Plan Disposition Patient Disposition: Home, Self-Care Condition: Good Prescriptions Prescriptions: New ibuprofen 400 mg tablet 400 mg PO TID PRN (Reason: pain) Qty: 20 0RF No Action lorazepam [Ativan] 0.5 mg tablet 0.5 mg PO Q8H Qty: 90 5RF clonazepam [Klonopin] 0.5 mg tablet 0.5 mg PO BID Qty: 60 4RF atorvastatin 20 MG tablet 20 mg PO HS alendronate 70 MG tablet 70 mg PO WEEKLY levetiracetam 750 MG tablet 750 mg PO BID phenazopyridine 200 MG tablet 200 mg PO DIRECTED Rx Instructions: Take every 4 days. trazodone 50 MG tablet 50 mg PO HS PRN (Reason: Insomnia) carvedilol 3.125 MG tablet 3.125 mg PO BID pantoprazole 40 MG tablet,delayed release (DR/EC) 40 mg PO DAILY risperidone 1 MG tablet 1 mg PO BID ukbqghiw-pkj-WM-lycopen-lutein 1 EACH tablet 1 each PO DAILY donepezil 5 MG tablet 5 mg PO DAILY levothyroxine 75 MCG tablet 75 mcg PO DAILY venlafaxine 150 MG capsule,extended release 24hr 150 mg PO DAILY levofloxacin 750 MG tablet 750 mg PO DAILY Qty: 5 0RF Referrals Follow up/Referrals: Provider,Referral, MD [Primary Care Provider] - See instructions Activity Restrictions/Add. Instructions Additional Instructions/Restrictions: Apply ice and/or heat to the affected area as needed for discomfort. Consideration to physical therapy as needed for persistent discomfort. Consideration of pain management for persistent discomfort. Follow-up with your primary care provider this week. Clinical Impressions Clinical Impression: Sciatica Discharge ED Provider: Francis Santana General Adult HPI General Chief complaint: PAIN Stated complaint: pain Time Seen by Provider: 11/18/22 14:19 Mode of Arrival: EMS Source of Information: Patient Limitations: No Limitations Description of Symptoms (Recalled from ER Triage Doc. by RN): pt to ed via ems c/o right hip pain. pt states she fell x2 months ago and has had pain since. pt states she has also had a hard time controlling her anxiety. History of Present Illness HPI narrative: Patient presents complaining of pain to the right sciatic area for the last 2 weeks. She is 2 months status post fall at which time she sustained a reported injury to this area. Pain is worse with movement she describes the pain as moderate presently. She denies new numbness or weakness of the lower extremities. Related Data Home Medications Medication Instructions Recorded Confirmed alendronate 70 mg tablet 70 mg PO WEEKLY bones 07/05/21 10/26/21 atorvastatin 20 mg tablet 20 mg PO HS Cholesterol 07/05/21 10/26/21 levetiracetam 750 mg tablet 750 mg PO BID seizures 07/05/21 10/26/21 phenazopyridine 200 mg tablet 200 mg PO DIRECTED uti 10/25/21 10/26/21 carvedilol 3.125 mg tablet 3.125 mg PO BID High blood pressure 10/26/21 10/26/21 donepezil 5 mg tablet 5 mg PO DAILY Memory 10/26/21 10/26/21 levothyroxine 75 mcg tablet 75 mcg PO DAILY hypothyroidism 10/26/21 10/26/21 skrxjeso-qwt-jxijg acid 0.4 1 each PO DAILY Supplement 10/26/21 10/26/21 mg-lycopene 300 mcg-lutein 250 mcg tablet pantoprazole 40 mg tablet,delayed 40 mg PO DAILY Indigestion 10/26/21 10/26/21 release risperidone 1 mg tablet 1 mg PO BID Depression 10/26/21 10/26/21 trazodone 50 mg tablet 50 mg PO HS PRN Insomnia 10/26/21 10/26/21 venlafaxine 150 mg 150 mg PO DAILY Depression 10/26/21 10/26/21 capsule,extended release 24 hr Previous Rx's Medication Instructions Recorded lorazepam 0.5 mg tablet (Ativan) 0.5 mg PO Q8H anxiety #90 tabs 10/20/21 levofloxacin 750 mg tablet 750 mg PO DAILY #5 tabs 10/26/21 clonazepam 0.5 mg tablet (Klonopin) 0.5 mg PO BID #60 tabs 06/20/22 ibuprofen 400 mg tablet 400 mg PO TID PRN pain #20 tabs 11/18/22 Allergies Allergy/AdvReac Type Severity Reaction Status Date / Time codeine Allergy Verified 10/26/21 04:55 omeprazole Allergy Verified 10/26/21 04:55
--- NOTE | 2022-11-18 14:33 | PC.NURSE ---
right hip absent of bruising or deformity at this time
[2022-11-18 15:00] VITALS: BP 124/77; PULSE 80; O2SAT 95
--- NOTE | 2022-11-18 15:42 | HMH.EDGENADL ---
Discharge Plan Disposition Patient Disposition: Home, Self-Care Condition: Good Prescriptions Prescriptions: New ibuprofen 400 mg tablet 400 mg PO TID PRN (Reason: pain) Qty: 20 0RF No Action lorazepam [Ativan] 0.5 mg tablet 0.5 mg PO Q8H Qty: 90 5RF clonazepam [Klonopin] 0.5 mg tablet 0.5 mg PO BID Qty: 60 4RF atorvastatin 20 MG tablet 20 mg PO HS alendronate 70 MG tablet 70 mg PO WEEKLY levetiracetam 750 MG tablet 750 mg PO BID phenazopyridine 200 MG tablet 200 mg PO DIRECTED Rx Instructions: Take every 4 days. trazodone 50 MG tablet 50 mg PO HS PRN (Reason: Insomnia) carvedilol 3.125 MG tablet 3.125 mg PO BID pantoprazole 40 MG tablet,delayed release (DR/EC) 40 mg PO DAILY risperidone 1 MG tablet 1 mg PO BID ojmbpafy-qru-BW-lycopen-lutein 1 EACH tablet 1 each PO DAILY donepezil 5 MG tablet 5 mg PO DAILY levothyroxine 75 MCG tablet 75 mcg PO DAILY venlafaxine 150 MG capsule,extended release 24hr 150 mg PO DAILY levofloxacin 750 MG tablet 750 mg PO DAILY Qty: 5 0RF Referrals Follow up/Referrals: Provider,Referral, MD [Primary Care Provider] - See instructions Activity Restrictions/Add. Instructions Additional Instructions/Restrictions: Apply ice and/or heat to the affected area as needed for discomfort. Consideration to physical therapy as needed for persistent discomfort. Consideration of pain management for persistent discomfort. Follow-up with your primary care provider this week. Clinical Impressions Clinical Impression: Sciatica Discharge ED Provider: Francis Santana General Adult [facility] General Chief complaint: PAIN Stated complaint: pain Time Seen by Provider: 11/18/22 14:19 Mode of Arrival: EMS Source of Information: Patient Limitations: No Limitations Description of Symptoms (Recalled from ER Triage Doc. by RN): pt to ed via ems c/o right hip pain. pt states she fell x2 months ago and has had pain since. pt states she has also had a hard time controlling her anxiety. Related Data Home Medications Medication Instructions Recorded Confirmed alendronate 70 mg tablet 70 mg PO WEEKLY bones 07/05/21 10/26/21 atorvastatin 20 mg tablet 20 mg PO HS Cholesterol 07/05/21 10/26/21 levetiracetam 750 mg tablet 750 mg PO BID seizures 07/05/21 10/26/21 phenazopyridine 200 mg tablet 200 mg PO DIRECTED uti 10/25/21 10/26/21 carvedilol 3.125 mg tablet 3.125 mg PO BID High blood pressure 10/26/21 10/26/21 donepezil 5 mg tablet 5 mg PO DAILY Memory 10/26/21 10/26/21 levothyroxine 75 mcg tablet 75 mcg PO DAILY hypothyroidism 10/26/21 10/26/21 piacqnir-tmx-bfono acid 0.4 1 each PO DAILY Supplement 10/26/21 10/26/21 mg-lycopene 300 mcg-lutein 250 mcg tablet pantoprazole 40 mg tablet,delayed 40 mg PO DAILY Indigestion 10/26/21 10/26/21 release risperidone 1 mg tablet 1 mg PO BID Depression 10/26/21 10/26/21 trazodone 50 mg tablet 50 mg PO HS PRN Insomnia 10/26/21 10/26/21 venlafaxine 150 mg 150 mg PO DAILY Depression 10/26/21 10/26/21 capsule,extended release 24 hr Previous Rx's Medication Instructions Recorded lorazepam 0.5 mg tablet (Ativan) 0.5 mg PO Q8H anxiety #90 tabs 10/20/21 levofloxacin 750 mg tablet 750 mg PO DAILY #5 tabs 10/26/21 clonazepam 0.5 mg tablet (Klonopin) 0.5 mg PO BID #60 tabs 06/20/22 ibuprofen 400 mg tablet 400 mg PO TID PRN pain #20 tabs 11/18/22 Allergies Allergy/AdvReac Type Severity Reaction Status Date / Time codeine Allergy Verified 10/26/21 04:55 omeprazole Allergy Verified 10/26/21 04:55 quetiapine [From Seroquel] Allergy Verified 10/26/21 04:55 [facility] Disclaimer: The information contained in this section may have been updated after the patient was seen, as this information can be updated by other users. Social History Smoking Status: Never smoker alcohol intake: never curren
--- NOTE | 2022-11-18 15:57 | PC.NURSE ---
called patricia for transport home
[2022-11-18 16:10] VITALS: BP 121/78; PULSE 81; RESP 16; TEMP 36.7
== END 2022-11-18 16:11 | disposition home or self-care (01) ==
PROVIDERS: Emergency Provider Emergency Medicine
DX: M54.31 Sciatica, right side (principal)
CPT/HCPCS: 72100; 73502; 96372; 99283; 99284

== ENCOUNTER 2023-01-08 11:58 | Emergency (ER) | payer MEDICAID, SELFPAY ==
[2023-01-08] VITALS (10 sets, daily range): BP systolic 125–153; BP diastolic 76–96; PULSE 67–78; RESP 16; TEMP 36.6–36.7; O2SAT 94–99; BMI 40.2
--- NOTE | 2023-01-08 11:56 | ECG_ITS ---
APPROVED REPORT Exam: Resting ECG HR:77 bpm ECG Measurements Heart Rate 77 AXES FL 127 P 18 QRSd 89 QRS -6 QT 388 T 136 QTc 420 Conclusion SINUS RHYTHM LEFT VENTRICULAR HYPERTROPHY AND ST-T CHANGE [VOLTAGE CRITERIA PLUS ST/T ABNORMALITY] ABNORMAL ECG UNCONFIRMED REPORT Electronically signed by : Marco Adrian MD 01/08/2023 20:10:08
--- NOTE | 2023-01-08 12:07 | PC.NURSE ---
RAVI CERNA at for pt danielaal
--- NOTE | 2023-01-08 12:13 | HMH.EDGENADL ---
Discharge Plan Disposition Patient Disposition: Home, Self-Care Condition: Fair Chief Complaint: Anxiety Prescriptions Prescriptions: No Action lorazepam [Ativan] 0.5 mg tablet 0.5 mg PO Q8H Qty: 90 5RF clonazepam [Klonopin] 0.5 mg tablet 0.5 mg PO BID Qty: 60 4RF ibuprofen 400 mg tablet 400 mg PO TID PRN (Reason: pain) Qty: 20 0RF atorvastatin 20 MG tablet 20 mg PO HS alendronate 70 MG tablet 70 mg PO WEEKLY levetiracetam 750 MG tablet 750 mg PO BID phenazopyridine 200 MG tablet 200 mg PO DIRECTED Rx Instructions: Take every 4 days. trazodone 50 MG tablet 50 mg PO HS PRN (Reason: Insomnia) carvedilol 3.125 MG tablet 3.125 mg PO BID pantoprazole 40 MG tablet,delayed release (DR/EC) 40 mg PO DAILY risperidone 1 MG tablet 1 mg PO BID bdnsbvoi-ery-FW-lycopen-lutein 1 EACH tablet 1 each PO DAILY donepezil 5 MG tablet 5 mg PO DAILY levothyroxine 75 MCG tablet 75 mcg PO DAILY venlafaxine 150 MG capsule,extended release 24hr 150 mg PO DAILY levofloxacin 750 MG tablet 750 mg PO DAILY Qty: 5 0RF Referrals Follow up/Referrals: Ned Yost MD [Primary Care Provider] - See instructions Clinical Impressions Clinical Impression: Hypertension, Sciatica, Headache Instructions Patient Instructions: Anxiety and Panic Attacks (Alternative Therapy), DI for Chronic Pain -- Adult, DI for Headache, Yoga May Help Reduce Anxiety and Stress Discharge ED Provider: Hernandez Dash Adult HPI General Chief complaint: Anxiety Stated complaint: CP Time Seen by Provider: 01/08/23 12:49 Mode of Arrival: EMS Source of Information: Patient Limitations: No Limitations Description of Symptoms (Recalled from ER Triage Doc. by RN): 62 yo F presents to ED via EMS for high blood pressure and anxiety. EMS states that they were called to facility for high blood pressure and pt not acting like herself. pt very lethargic upon arrival to ED only stating that she is anxious and scared. pt does live at [facility]. History of Present Illness HPI narrative: This is a 62-year-old white female brought in from facility because of a headache and high blood pressure. Upon arrival patient appears lethargic complaining of a headache and leg pain. Patient does have a history of sciatica. No other history is available. Related Data Home Medications Medication Instructions Recorded Confirmed alendronate 70 mg tablet 70 mg PO WEEKLY bones 07/05/21 10/26/21 atorvastatin 20 mg tablet 20 mg PO HS Cholesterol 07/05/21 10/26/21 levetiracetam 750 mg tablet 750 mg PO BID seizures 07/05/21 10/26/21 phenazopyridine 200 mg tablet 200 mg PO DIRECTED uti 10/25/21 10/26/21 carvedilol 3.125 mg tablet 3.125 mg PO BID High blood pressure 10/26/21 10/26/21 donepezil 5 mg tablet 5 mg PO DAILY Memory 10/26/21 10/26/21 levothyroxine 75 mcg tablet 75 mcg PO DAILY hypothyroidism 10/26/21 10/26/21 fuxuksyj-gya-ggzpg acid 0.4 1 each PO DAILY Supplement 10/26/21 10/26/21 mg-lycopene 300 mcg-lutein 250 mcg tablet pantoprazole 40 mg tablet,delayed 40 mg PO DAILY Indigestion 10/26/21 10/26/21 release risperidone 1 mg tablet 1 mg PO BID Depression 10/26/21 10/26/21 trazodone 50 mg tablet 50 mg PO HS PRN Insomnia 10/26/21 10/26/21 venlafaxine 150 mg 150 mg PO DAILY Depression 10/26/21 10/26/21 capsule,extended release 24 hr Previous Rx's Medication Instructions Recorded lorazepam 0.5 mg tablet (Ativan) 0.5 mg PO Q8H anxiety #90 tabs 10/20/21 levofloxacin 750 mg tablet 750 mg PO DAILY #5 tabs 10/26/21 ibuprofen 400 mg tablet 400 mg PO TID PRN pain #20 tabs 11/18/22 clonazepam 0.5 mg tablet (Klonopin) 0.5 mg PO BID #60 tabs 12/21/22 Allergies Allergy/AdvReac Type Severity Reaction Status Date / Time codeine Allergy Verified 10/26/21 04:55 omeprazole Allergy Verified 10/26/21 04:55 quetiapine [From Seroquel] Allergy Verified 10/26
[2023-01-08 12:34] LABS: Basophils % 0.1 % (0.1-2.0); Eosinophils # 0.3 K/mm3 (0.0-0.4); Eosinophils % 4.4 % (0.1-12.0); Hematocrit 38.5 % (37.0-47.0); Hemoglobin 12.9 g/dL (12.2-16.2); Lymphocytes # 1.5 K/mm3 (0.7-4.5); Lymphocytes % 20.5 % (10-50); Mean Corpuscular HGB Conc 33.6 g/dL (31.8-35.4); Mean Corpuscular Volume 80.2 fl (81-99); Mean Platelet Volume 8.8 fl (7.4-10.4); Monocytes # 0.4 K/mm3 (0.1-1.0); Monocytes % 5.2 % (1.7-9.3); Neutrophils # 5.1 K/mm3 (1.8-7.8); Neutrophils % 69.7 % (37.0-80.0); Platelet Count 240 K/mm3 (142-424); Red Cell Distribution Width 15.1 % (11.5-17.5); White Blood Count 7.3 K/mm3 (4.8-10.8)
[2023-01-08 12:38] LABS: Chloride 104 mmol/L (98-107); Potassium 3.2 mmoL/L (3.5-5.1); Sodium 142 mmol/L (136-145)
[2023-01-08 12:40] LABS: Alanine Aminotransferase 23 U/L (12-78); Aspartate Amino Transferase 29 U/L (14-36); Blood Urea Nitrogen 12 mg/dl (7-17); Creatinine Clearance Estimated 91 mL/min (50-200); Estimated Glomerular Filt Rate 72 ml/min (>60); GFR (African American) 88 ML/MIN (>60)
[2023-01-08 12:41] LABS: Albumin/Globulin Ratio 1.5 (1.1-1.8); Alkaline Phosphatase 114 U/L (38-126); Anion Gap 13.2 mEq/L (5-15); Bilirubin,Total 0.3 mg/dl (0.2-1.3); Calcium 8.5 mg/dl (8.4-10.2); Carbon Dioxide 28 mmol/L (22.0-30.0); Ethyl Alcohol < 10 mg/dl (0-10); Globulin 2.7 g/dL (1.3-3.2); Glucose 121 mg/dl (74-100); Total Protein,Serum 6.7 g/dl (6.3-8.2)
--- NOTE | 2023-01-08 12:54 | PC.NURSE ---
rounded on pt for any needs they may have. pt asked for help with her water. Assisted her and she had no other needs at this time
--- NOTE | 2023-01-08 12:55 | PC.NURSE ---
pt drinking OJ at this time for glucose of 63. aware
--- NOTE | 2023-01-08 14:15 | PC.NURSE ---
UA sent to lab
[2023-01-08 14:33] LABS: Barbiturates Screen,Urine Negative ng/ml (<200); Benzodiazepines Screen,Urine Positive ng/ml (<200)
--- NOTE | 2023-01-08 14:33 | PC.NURSE ---
Rounded on patient; pt resting on ED stretcher-- RR: 14. Call conti within reach, no needs at this time
[2023-01-08 14:34] LABS: Amphetamine/Metha Screen,Urine Negative ng/ml (<1000)
[2023-01-08 14:35] LABS: Cannabinoid Screen,Urine Negative ng/ml (<50); Methadone Screen,Urine Negative ng/ml (<300)
[2023-01-08 14:36] LABS: Cocaine Screen,Urine Negative ng/ml (<300)
[2023-01-08 14:37] LABS: Opiate Screen,Urine Negative ng/ml (<300); Phencyclidine Screen,Urine Negative ng/ml (<25)
--- NOTE | 2023-01-08 15:02 | PC.NURSE ---
called [facility] about discharge of patient, they will work on getting pt ride back to facility.
--- NOTE | 2023-01-08 15:49 | PC.NURSE ---
called [facility] frankel to get update on pt ride back to facility
--- NOTE | 2023-01-08 16:16 | PC.NURSE ---
call made to [facility] about transport for pt. worker states that she does not have a vehicle. and is unable to get ahold of management. worker states she is going to attempt to get ahold of management.
== END 2023-01-08 16:52 | disposition home or self-care (01) ==
PROVIDERS: Emergency Provider Emergency Medicine; PCP Emergency Medicine
DX: R51.9 Headache, unspecified (principal); I10 Essential (primary) hypertension; M54.30 Sciatica, unspecified side; E87.6 Hypokalemia; R53.81 Other malaise; R94.31 Abnormal electrocardiogram [ECG] [EKG]; F17.210 Nicotine dependence, cigarettes, uncomplicated
CPT/HCPCS: 36415; 80053; 80305; 85025; 93005; 99283; 99284

== ENCOUNTER 2023-02-22 16:58 | Emergency (ER) | payer MEDICAID, SELFPAY ==
[2023-02-22 17:15] VITALS: BP 149/96; PULSE 101; RESP 18; TEMP 37.1; O2SAT 100; BMI 28.3
--- NOTE | 2023-02-22 17:33 | EXP.UTC ---
Discharge Plan Disposition Patient Disposition: Home, Self-Care Condition: Fair Prescriptions Prescriptions: No Action lorazepam [Ativan] 0.5 mg tablet 0.5 mg PO Q8H Qty: 90 5RF clonazepam [Klonopin] 0.5 mg tablet 0.5 mg PO BID Qty: 60 4RF risperidone 0.5 mg tablet See Rx Instructions .ROUTE .COMPLEX Qty: 30 11RF Dose Instruction: GIVE 1 TABLET BY MOUTH ONCE DAILY Rx Instructions: GIVE 1 TABLET BY MOUTH ONCE DAILY mirtazapine 15 mg tablet 15 mg PO HS Qty: 30 5RF buspirone 5 mg tablet 5 mg PO TID Qty: 90 5RF ibuprofen 400 mg tablet 400 mg PO TID PRN (Reason: pain) Qty: 20 0RF atorvastatin 20 MG tablet 20 mg PO HS alendronate 70 MG tablet 70 mg PO WEEKLY levetiracetam 750 MG tablet 750 mg PO BID phenazopyridine 200 MG tablet 200 mg PO DIRECTED Rx Instructions: Take every 4 days. trazodone 50 MG tablet 50 mg PO HS PRN (Reason: Insomnia) carvedilol 3.125 MG tablet 3.125 mg PO BID pantoprazole 40 MG tablet,delayed release (DR/EC) 40 mg PO DAILY utasmfwf-juo-CU-lycopen-lutein 1 EACH tablet 1 each PO DAILY donepezil 5 MG tablet 5 mg PO DAILY levothyroxine 75 MCG tablet 75 mcg PO DAILY venlafaxine 150 MG capsule,extended release 24hr 150 mg PO DAILY levofloxacin 750 MG tablet 750 mg PO DAILY Qty: 5 0RF Referrals Follow up/Referrals: Ned Yost MD [Primary Care Provider] - See instructions Clinical Impressions Clinical Impression: Well adult health check Discharge ED Provider: Francis Becker [facility] HPI General Chief complaint: Recheck/Abnormal Lab/Rx Stated complaint: tired,weakness Mode of Arrival: Ambulatory Source of Information: Patient Limitations: No Limitations Time Seen by Provider: 02/22/23 17:33 Description of Symptoms (Recalled from Triage Doc. by RN): PATIENT'S DAUGHTERS ARE REQUESTING THAT PATIENT HAVE EARS CHECKED AND BE CHECKED FOR STREP HEENT Symptoms (Recalled from RN notes): Yes Resp Symptoms (Recalled from RN notes): No Skin Symptoms (Recalled from RN notes): No MS Symptoms (Recalled from RN notes): No Functional Status (Recalled from RN notes): WNL History of Present Illness Provider Complaint: Daughters states that they are taking patient home for the weekend from [facility] States that they wanted them to get her checked before she went home and they was wanting to have her ears and throat checked States that they said at the long term that she was recently treated for Yeast they think in her mouth and wanted it looked at prior to taking her home Patient is a poor historian but when asked if anything hurts shakes her head no and holding daughters hand Related Data Home Medications Medication Instructions Recorded Confirmed alendronate 70 mg tablet 70 mg PO WEEKLY bones 07/05/21 10/26/21 atorvastatin 20 mg tablet 20 mg PO HS Cholesterol 07/05/21 10/26/21 levetiracetam 750 mg tablet 750 mg PO BID seizures 07/05/21 10/26/21 phenazopyridine 200 mg tablet 200 mg PO DIRECTED uti 10/25/21 10/26/21 carvedilol 3.125 mg tablet 3.125 mg PO BID High blood pressure 10/26/21 10/26/21 donepezil 5 mg tablet 5 mg PO DAILY Memory 10/26/21 10/26/21 levothyroxine 75 mcg tablet 75 mcg PO DAILY hypothyroidism 10/26/21 10/26/21 ksmsopkl-xtq-muook acid 0.4 1 each PO DAILY Supplement 10/26/21 10/26/21 mg-lycopene 300 mcg-lutein 250 mcg tablet pantoprazole 40 mg tablet,delayed 40 mg PO DAILY Indigestion 10/26/21 10/26/21 release trazodone 50 mg tablet 50 mg PO HS PRN Insomnia 10/26/21 10/26/21 venlafaxine 150 mg 150 mg PO DAILY Depression 10/26/21 10/26/21 capsule,extended release 24 hr Previous Rx's Medication Instructions Recorded lorazepam 0.5 mg tablet (Ativan) 0.5 mg PO Q8H anxiety #90 tabs 10/20/21 levofloxacin 750 mg tablet 750 mg PO DAILY #5 tabs 10/26/21 ibuprofen 400 mg tablet 400 mg PO TID PRN pain #20 tabs 11/18/22 clonazepam 0.5 mg tablet
[2023-02-22 17:50] LABS: UTC Strep Screen (Rapid) Negative (Negative)
[2023-02-22 18:17] VITALS: BP 158/95; PULSE 101; RESP 18; O2SAT 97; BMI 28.3
[2023-02-22 18:32] VITALS: O2SAT 97
--- NOTE | 2023-02-22 18:39 | HMH.EDGENADL ---
Discharge Plan Disposition Patient Disposition: Home, Self-Care Condition: Fair Prescriptions Prescriptions: No Action lorazepam [Ativan] 0.5 mg tablet 0.5 mg PO Q8H Qty: 90 5RF clonazepam [Klonopin] 0.5 mg tablet 0.5 mg PO BID Qty: 60 4RF risperidone 0.5 mg tablet See Rx Instructions .ROUTE .COMPLEX Qty: 30 11RF Dose Instruction: GIVE 1 TABLET BY MOUTH ONCE DAILY Rx Instructions: GIVE 1 TABLET BY MOUTH ONCE DAILY mirtazapine 15 mg tablet 15 mg PO HS Qty: 30 5RF buspirone 5 mg tablet 5 mg PO TID Qty: 90 5RF ibuprofen 400 mg tablet 400 mg PO TID PRN (Reason: pain) Qty: 20 0RF atorvastatin 20 MG tablet 20 mg PO HS alendronate 70 MG tablet 70 mg PO WEEKLY levetiracetam 750 MG tablet 750 mg PO BID phenazopyridine 200 MG tablet 200 mg PO DIRECTED Rx Instructions: Take every 4 days. trazodone 50 MG tablet 50 mg PO HS PRN (Reason: Insomnia) carvedilol 3.125 MG tablet 3.125 mg PO BID pantoprazole 40 MG tablet,delayed release (DR/EC) 40 mg PO DAILY xarghpqv-djy-NN-lycopen-lutein 1 EACH tablet 1 each PO DAILY donepezil 5 MG tablet 5 mg PO DAILY levothyroxine 75 MCG tablet 75 mcg PO DAILY venlafaxine 150 MG capsule,extended release 24hr 150 mg PO DAILY levofloxacin 750 MG tablet 750 mg PO DAILY Qty: 5 0RF Referrals Follow up/Referrals: Ned Yost MD [Primary Care Provider] - See instructions Clinical Impressions Clinical Impression: Well adult health check Discharge ED Provider: Francis Becker General Adult HPI General Chief complaint: Recheck/Abnormal Lab/Rx Stated complaint: tired,weakness Time Seen by Provider: 02/22/23 17:33 Mode of Arrival: Ambulatory Source of Information: Patient, Relative and Medical Record Limitations: dementia Description of Symptoms (Recalled from ER Triage Doc. by RN): daughter states that they were picking pt up from her resident [facility] and was told by pt social services technician they needed to have her evaluated by a physician before taking her home for the weekend. Daughter states that the social services technician has been told by staff there is no issue with pt. When family picked up pt she has baggy clothes on and seems to not have showered in weeks. History of Present Illness HPI narrative: This a 62-year-old female with no relevant medical history presenting with checkup. Patient lives at group living facility, was told to come to the ER for physician checkup before going home with family. No complaints, patient feels safe at home and at [facility]. Reports no physical, mental, or sexual abuse. No acute complaint Related Data Home Medications Medication Instructions Recorded Confirmed alendronate 70 mg tablet 70 mg PO WEEKLY bones 07/05/21 10/26/21 atorvastatin 20 mg tablet 20 mg PO HS Cholesterol 07/05/21 10/26/21 levetiracetam 750 mg tablet 750 mg PO BID seizures 07/05/21 10/26/21 phenazopyridine 200 mg tablet 200 mg PO DIRECTED uti 10/25/21 10/26/21 carvedilol 3.125 mg tablet 3.125 mg PO BID High blood pressure 10/26/21 10/26/21 donepezil 5 mg tablet 5 mg PO DAILY Memory 10/26/21 10/26/21 levothyroxine 75 mcg tablet 75 mcg PO DAILY hypothyroidism 10/26/21 10/26/21 guzbnsnj-lrl-zqayb acid 0.4 1 each PO DAILY Supplement 10/26/21 10/26/21 mg-lycopene 300 mcg-lutein 250 mcg tablet pantoprazole 40 mg tablet,delayed 40 mg PO DAILY Indigestion 10/26/21 10/26/21 release trazodone 50 mg tablet 50 mg PO HS PRN Insomnia 10/26/21 10/26/21 venlafaxine 150 mg 150 mg PO DAILY Depression 10/26/21 10/26/21 capsule,extended release 24 hr Previous Rx's Medication Instructions Recorded lorazepam 0.5 mg tablet (Ativan) 0.5 mg PO Q8H anxiety #90 tabs 10/20/21 levofloxacin 750 mg tablet 750 mg PO DAILY #5 tabs 10/26/21 ibuprofen 400 mg tablet 400 mg PO TID PRN pain #20 tabs 11/18/22 clonazepam 0.5 mg tablet (Klonopin) 0.5 mg PO BID #60 tabs 12/21/22
[2023-02-22 18:47] VITALS: BP 159/97; PULSE 97; RESP 18; TEMP 37.1; O2SAT 97
== END 2023-02-22 18:49 | disposition home or self-care (01) ==
LOC: UTC 18:02 → ER 18:02
PROVIDERS: Nurse Practitioner; Emergency Provider Emergency Medicine; PCP Emergency Medicine
DX: R53.1 Weakness (principal); R53.83 Other fatigue
CPT/HCPCS: 87880; 99283

== ENCOUNTER 2023-03-16 16:01 | Inpatient (IN) | payer MEDICAID, SELFPAY ==
[2023-03-16] VITALS (12 sets, daily range): BP systolic 122–190; BP diastolic 66–101; PULSE 80–104; RESP 16–19; TEMP 36.5–38.2; O2SAT 95–99; BMI 24.2; BMI 22.0
--- NOTE | 2023-03-16 16:17 | CT_ITS ---
PROCEDURE INFORMATION: Exam: CT Head Without Contrast Exam date and time: 03/16/2023 5:34 PM Age: 62 years old Clinical indication: Injury or trauma; Fall; Blunt trauma (contusions or hematomas); Consciousness not specified; Additional info: Found outside, AMS, questionable fall TECHNIQUE: Imaging protocol: Computed tomography of the head without contrast. Radiation optimization: All CT scans at this facility use at least one of these dose optimization techniques: automated exposure control; mA and/or kV adjustment per patient size (includes targeted exams where dose is matched to clinical indication); or iterative reconstruction. REPORTING DATA: Count of CT and Cardiac NM exams in prior 12 months: This patient has received 0 known CTs and 0 known cardiac nuclear medicine studies in the 12 months prior to the current study. COMPARISON: CT HEAD/BRAIN WO CON 10/25/2021 7:33 PM FINDINGS: Brain: Normal. No hemorrhage. Unremarkable white matter. No mass effect. Cerebral ventricles: No ventriculomegaly. Paranasal sinuses: Visualized sinuses are unremarkable. No fluid levels. Mastoid air cells: Visualized mastoid air cells are well aerated. Bones/joints: Unremarkable. No acute fracture. Soft tissues: Unremarkable. IMPRESSION: No acute intracranial abnormality.
--- NOTE | 2023-03-16 16:17 | XR_ITS ---
PROCEDURE INFORMATION: Exam: XR Right Hip Exam date and time: 03/16/2023 5:14 PM Age: 62 years old Clinical indication: Pain and injury or trauma; Fall; Blunt trauma (contusions or hematomas); Hip pain; Right hip; Additional info: Found outside, AMS, questionable fall, R hip pain TECHNIQUE: Imaging protocol: Radiologic exam of the right hip. Views: 2 or 3 views hip with pelvis when performed. COMPARISON: CR XR HIP RT 2-3V W/PELVIS 11/18/2022 2:26 PM FINDINGS: Bones/joints: Unremarkable. No acute fracture. Soft tissues: Unremarkable. IMPRESSION: No acute findings.
--- NOTE | 2023-03-16 16:17 | XR_ITS ---
PROCEDURE INFORMATION: Exam: XR Chest Exam date and time: 03/16/2023 5:14 PM Age: 62 years old Clinical indication: Injury or trauma; Fall; Blunt trauma (contusions or hematomas); Additional info: Found outside, AMS, questionable fall TECHNIQUE: Imaging protocol: Radiologic exam of the chest. Views: 1 view. COMPARISON: CR XR CHEST PORTABLE 10/25/2021 8:36 PM FINDINGS: Lungs: Unremarkable. No consolidation. Pleural spaces: Unremarkable. No pleural effusion. No pneumothorax. Heart/Mediastinum: Unremarkable. No cardiomegaly. Bones/joints: Unremarkable. IMPRESSION: No acute findings.
--- NOTE | 2023-03-16 16:17 | XR_ITS ---
PROCEDURE INFORMATION: Exam: XR Right Femur Exam date and time: 03/16/2023 5:14 PM Age: 62 years old Clinical indication: Pain; Hip; Right; Additional info: Found outside, AMS, questionable fall TECHNIQUE: Imaging protocol: Radiologic exam of the right femur. Views: 2 views. COMPARISON: CR XR LUMBAR SPINE 2-3V 11/18/2022 2:29 PM FINDINGS: Bones/joints: Unremarkable. No acute fracture. Soft tissues: Unremarkable. IMPRESSION: No acute findings.
--- NOTE | 2023-03-16 16:17 | CT_ITS ---
PROCEDURE INFORMATION: Exam: CT Cervical Spine Without Contrast Exam date and time: 03/16/2023 5:37 PM Age: 62 years old Clinical indication: Injury or trauma; Fall; Blunt trauma; Additional info: Found outside, AMS, questionable fall TECHNIQUE: Imaging protocol: Computed tomography of the cervical spine without contrast. Radiation optimization: All CT scans at this facility use at least one of these dose optimization techniques: automated exposure control; mA and/or kV adjustment per patient size (includes targeted exams where dose is matched to clinical indication); or iterative reconstruction. REPORTING DATA: Count of CT and Cardiac NM exams in prior 12 months: This patient has received 0 known CTs and 0 known cardiac nuclear medicine studies in the 12 months prior to the current study. COMPARISON: CT CERVICAL SPINE WO CON 07/13/2021 6:48 PM FINDINGS: Bones/joints: Moderate multilevel bilateral facet arthropathy with grade 1 anterolisthesis of C4. Moderate degenerative changes of the atlantoaxial joint as well as the C5-C6 and C6-C7 disc levels. Disc bulge and uncovertebral spurring produces at least mild stenosis of the bilateral C7 neural exit foramina. No acute fracture. Lungs: Lung apices are normal. Soft tissues: Unremarkable. IMPRESSION: No acute fracture. Multilevel degenerative changes as described.
--- NOTE | 2023-03-16 16:19 | HMH.EDGENADL ---
Discharge Plan Disposition Patient Disposition: Admitted Condition: Fair Clinical Impressions Clinical Impression: AMS (altered mental status), UTI (urinary tract infection), Sepsis, Acute hypokalemia Discharge ED Provider: Stefanie Moreau General Adult HPI General Chief complaint: Altered Mental Status Stated complaint: ams Time Seen by Provider: 03/16/23 16:12 Source of Information: Patient, EMS and Medical Record History of Present Illness HPI narrative: This patient is a 62-year-old female presenting via EMS after being found outside lying down in a parking lot with altered mental status. EMS reports that no one was with her and patient is altered and unable to provide further history. According to medical record review, patient has a history of seizure disorder, hypothyroidism, COPD, hyperlipidemia, and hypertension. It is like she takes clonazepam, Keppra, risperidone, trazodone, venlafaxine, levothyroxine, donepezil, and carvedilol. Patient is very warm to the touch upon arrival. She is disoriented and is only able to tell me her name, but is not able to provide further history as she currently thinks that she is at [facility]. Related Data Home Medications Medication Instructions Recorded Confirmed alendronate 70 mg tablet 70 mg PO WEEKLY bones 07/05/21 10/26/21 atorvastatin 20 mg tablet 20 mg PO HS Cholesterol 07/05/21 10/26/21 levetiracetam 750 mg tablet 750 mg PO BID seizures 07/05/21 10/26/21 phenazopyridine 200 mg tablet 200 mg PO DIRECTED uti 10/25/21 10/26/21 carvedilol 3.125 mg tablet 3.125 mg PO BID High blood pressure 10/26/21 10/26/21 donepezil 5 mg tablet 5 mg PO DAILY Memory 10/26/21 10/26/21 levothyroxine 75 mcg tablet 75 mcg PO DAILY hypothyroidism 10/26/21 10/26/21 ekgwonzr-aut-uozea acid 0.4 1 each PO DAILY Supplement 10/26/21 10/26/21 mg-lycopene 300 mcg-lutein 250 mcg tablet pantoprazole 40 mg tablet,delayed 40 mg PO DAILY Indigestion 10/26/21 10/26/21 release trazodone 50 mg tablet 50 mg PO HS PRN Insomnia 10/26/21 10/26/21 venlafaxine 150 mg 150 mg PO DAILY Depression 10/26/21 10/26/21 capsule,extended release 24 hr Previous Rx's Medication Instructions Recorded lorazepam 0.5 mg tablet (Ativan) 0.5 mg PO Q8H anxiety #90 tabs 10/20/21 levofloxacin 750 mg tablet 750 mg PO DAILY #5 tabs 10/26/21 ibuprofen 400 mg tablet 400 mg PO TID PRN pain #20 tabs 11/18/22 clonazepam 0.5 mg tablet (Klonopin) 0.5 mg PO BID #60 tabs 12/21/22 risperidone 0.5 mg tablet See Rx Instructions .Route 02/14/23 .COMPLEX #30 ea buspirone 5 mg tablet 5 mg PO TID #90 tabs 02/18/23 mirtazapine 15 mg tablet 15 mg PO HS #30 tabs 02/18/23 Allergies Allergy/AdvReac Type Severity Reaction Status Date / Time codeine Allergy Verified 10/26/21 04:55 omeprazole Allergy Verified 10/26/21 04:55 quetiapine [From Seroquel] Allergy Verified 10/26/21 04:55 [facility] PFS Disclaimer: The information contained in this section may have been updated after the patient was seen, as this information can be updated by other users. Medical History (Updated 03/16/23 @ 22:31 by León Da Silva APRN) Dementia Depression HLD (hyperlipidemia) Social History (Updated 03/16/23 @ 21:27 by Yvette Milan RN) Smoking Status: Unknown if ever smoked alcohol intake: never current occupational status: unemployed and disabled Travel in the last 8 weeks: None ROS Obtained: Yes All systems reviewed & no additional complaints except as documented Physical Exam General General appearance: alert Comment: Very warm to touch with a temperature of 100.8 rectally. Head Head exam: atraumatic and normocephalic Eye Eye exam: Present normal appearance, PERRL and EOMI ENT ENT exam: Present mucous membranes dry and normal external ear exam Neck Neck exam: Present normal inspection, full ROM and trachea midline; Absent tenderness Chest Chest inspection: Present normal inspection and symmetric chest wall rise; Absent ten
--- NOTE | 2023-03-16 16:23 | ECG_ITS ---
APPROVED REPORT Exam: Resting ECG HR:93 bpm ECG Measurements Heart Rate 93 AXES AR 116 P 80 QRSd 84 QRS 49 QT 381 T 68 QTc 432 Conclusion SINUS RHYTHM WITH SHORT AR INTERVAL ST DEVIATION AND MODERATE T-WAVE ABNORMALITY, CONSIDER ANTERIOR ISCHEMIA [-0.1+ mV T-WAVE IN V3/V4] ABNORMAL ECG UNCONFIRMED REPORT Electronically signed by : Marco Adrian MD 03/17/2023 12:34:03
--- NOTE | 2023-03-16 16:24 | PC.NURSE ---
respiratory notified of VBG order and bloodwork sent to lab.
[2023-03-16 16:28] LABS: Microscopic, Urine URINE MICROSCOPIC (MICROSCOPIC)
[2023-03-16 16:33] LABS: Appearance,Urine SL CLOUDY (Clear); Blood, Urine Negative (Negative); Color,Urine DK YELLOW (Yellow); Glucose,Urine (UA) Negative (Negative); Ketones,Urine Negative (Negative); Leukocyte Esterase,Urine TRACE (Negative); Nitrate,Urine POSITIVE (Negative); Protein,Urine 1+ (Negative); Specific Gravity, Urine >= 1.030 (1.005-1.030)
[2023-03-16 16:36] LABS: Basophils % 0.2 % (0.1-2.0); Eosinophils # 0.1 K/mm3 (0.0-0.4); Eosinophils % 1.4 % (0.1-12.0); Hematocrit 41.5 % (37.0-47.0); Hemoglobin 13.5 g/dL (12.2-16.2); Lymphocytes # 1.3 K/mm3 (0.7-4.5); Lymphocytes % 18.2 % (10-50); Mean Corpuscular HGB Conc 32.6 g/dL (31.8-35.4); Mean Corpuscular Hemoglobin 27.9 pg (27.0-31.2); Mean Corpuscular Volume 85.8 fl (81-99); Mean Platelet Volume 8.3 fl (7.4-10.4); Monocytes # 0.3 K/mm3 (0.1-1.0); Monocytes % 4.9 % (1.7-9.3); Neutrophils # 5.3 K/mm3 (1.8-7.8); Neutrophils % 75.4 % (37.0-80.0); Platelet Count 260 K/mm3 (142-424); Red Blood Count 4.84 M/mm3 (4.20-5.40); Red Cell Distribution Width 15.1 % (11.5-17.5); White Blood Count 7.1 K/mm3 (4.8-10.8)
[2023-03-16 16:37] LABS: Bilirubin,Urine 2+ (Negative)
[2023-03-16 16:40] LABS: Bacteria,Urine 4+ /lpf
[2023-03-16 16:41] LABS: Alanine Aminotransferase 41 U/L (12-78); Albumin Level 3.8 g/dl (3.5-5.0); Albumin/Globulin Ratio 1.3 (1.1-1.8); Alkaline Phosphatase 92 U/L (38-126); Anion Gap 19.1 mEq/L (5-15); Aspartate Amino Transferase 36 U/L (14-36); Bilirubin,Total 1.1 mg/dl (0.2-1.3); Blood Urea Nitrogen 13 mg/dl (7-17); Calcium 8.8 mg/dl (8.4-10.2); Carbon Dioxide 26 mmol/L (22.0-30.0); Chloride 102 mmol/L (98-107); Creatine Kinase 230 U/L (30-135); Estimated Glomerular Filt Rate 63 ml/min (>60); GFR (African American) 77 ML/MIN (>60); Glucose 110 mg/dl (74-100); Potassium 3.1 mmoL/L (3.5-5.1); Sodium 144 mmol/L (136-145); Total Protein,Serum 6.8 g/dl (6.3-8.2)
[2023-03-16 16:44] LABS: Barbiturates Screen,Urine Negative ng/ml (<200)
[2023-03-16 16:45] LABS: Amphetamine/Metha Screen,Urine Negative ng/ml (<1000)
[2023-03-16 16:46] LABS: Benzodiazepines Screen,Urine Positive ng/ml (<200); Cannabinoid Screen,Urine Negative ng/ml (<50)
[2023-03-16 16:46] LABS: Lactic Acid 2.2 mmol/L (0.7-2.1); Salicylate < 1.0 mg/dL (2.0-20.0)
[2023-03-16 16:47] LABS: Acetaminophen < 10 ug/ml (10-30)
[2023-03-16 16:47] LABS: Cocaine Screen,Urine Negative ng/ml (<300)
[2023-03-16 16:48] LABS: Methadone Screen,Urine Negative ng/ml (<300); Opiate Screen,Urine Negative ng/ml (<300)
[2023-03-16 16:49] LABS: Phencyclidine Screen,Urine Negative ng/ml (<25)
[2023-03-16 16:53] LABS: VBG Base Excess 1.2 mmol/L (-2.4-2.3); VBG HCO3 25.1 mmol/L (23-30); VBG Oxygen Saturation 96.6 % (50-70); VBG PCO2 36.9 mmol/L (35-51); VBG PH 7.45 mmol/L (7.31-7.41); VBG PO2 85.3 mmol/L (28-40); VBG Total CO2 26.3 mmol/L (23-27)
[2023-03-16 16:58] LABS: T4 (Thyroxine) 11.1 ug/dl (5.53-11.0)
[2023-03-16 17:02] LABS: Troponin I 0.01 ng/ml (0.00-0.034)
[2023-03-16 17:11] LABS: Thyroid Stimulating Hormone 5.41 uIU/mL (0.465-4.68)
--- NOTE | 2023-03-16 18:44 | PC.NURSE ---
pt resting in bed no needs, call light at bs
--- NOTE | 2023-03-16 20:01 | PC.NURSE ---
Called admissions to give room #
[2023-03-16 20:13] LABS: Troponin I < 0.01 ng/ml (0.00-0.034)
--- NOTE | 2023-03-16 20:16 | PC.NURSE ---
Rounded on pt. No needs voiced.
[2023-03-16 20:29] LABS: Reflex Lactic Add Lactic Reflex
--- NOTE | 2023-03-16 20:35 | EXP.HP ---
History of Present Illness *Admission Date: 03/16/23 *Reason for visit:: AMS. found outside *History of present illness: This is a 62-year-old female resident of foster home who was brought by EMS after being found outside lying down in a parking lot. During the assessment patient still confused, on altered mental status. History obtained from discussion made with the ER doctor, and EMS reports. EMS report stated that no one was with her and patient is unable to provide further history. According to medical record review, patient has a history of seizure disorder, hypothyroidism, COPD, hyperlipidemia, and hypertension. Some of her medications records are clonazepam, Keppra, risperidone, trazodone, venlafaxine, levothyroxine, donepezil, and carvedilol. Per ER doctor patient was warm to the touch upon arrival. There was a concern for heat stroke. She continue disoriented and is only able to tell me her name, but is not able to provide further history as she currently thinks that she is at [facility]. Admitted for treatment. [facility] Disclaimer: The information contained in this section may have been updated after the patient was seen, as this information can be updated by other users. Medical History (Updated 03/16/23 @ 22:31 by León Da Silva APRN) Dementia Depression HLD (hyperlipidemia) Social History (Updated 03/16/23 @ 21:27 by Yvette Milan RN) Smoking Status: Unknown if ever smoked alcohol intake: never current occupational status: unemployed and disabled Travel in the last 8 weeks: None Review of Systems Review of Systems Review of systems:: unable to obtain Meds Home Medications and Allergies Home Medications Medication Instructions Recorded Confirmed Type atorvastatin 20 mg tablet 20 mg PO HS Cholesterol 07/05/21 03/17/23 History levetiracetam 750 mg tablet 750 mg PO BID seizures 07/05/21 03/17/23 History carvedilol 3.125 mg tablet 3.125 mg PO BID High blood pressure 10/26/21 03/17/23 History levothyroxine 75 mcg tablet 75 mcg PO DAILYDM hypothyroidism 10/26/21 03/17/23 History venlafaxine 150 mg 150 mg PO DAILY Depression 10/26/21 03/17/23 History capsule,extended release 24 hr clonazepam 0.5 mg tablet (Klonopin) 0.5 mg PO BID Anxiety 03/17/23 03/17/23 History docusate sodium 100 mg tablet 100 mg PO BID Constipation 03/17/23 03/17/23 History donepezil 10 mg tablet 10 mg PO HS MEMORY 03/17/23 03/17/23 History hydroxyzine HCl 25 mg tablet 25 mg PO Q8HP PRN Anxiety 03/17/23 03/17/23 History ibuprofen 400 mg tablet 400 mg PO TIDP PRN Mild Pain 03/17/23 03/17/23 History (Scale Score 1-4) memantine 10 mg tablet 10 mg PO BID MEMORY 03/17/23 03/17/23 History olanzapine 10 mg tablet 10 mg PO BID MOOD 03/17/23 03/17/23 History omeprazole 20 mg tablet,delayed 20 mg PO DAILY Acid Reflux 03/17/23 03/17/23 History release quetiapine 300 mg tablet (Seroquel) 300 mg PO HS MOOD 03/17/23 03/17/23 History sennosides 8.6 mg tablet (Senokot) 8.6 mg PO HS Constipation 03/17/23 03/17/23 History sertraline 100 mg tablet 200 mg PO DAILY MOOD 03/17/23 03/17/23 History New Prescriptions to Start Prescriptions: Allergies Allergy/AdvReac Type Severity Reaction Status Date / Time codeine Allergy Verified 10/26/21 04:55 omeprazole Allergy Verified 10/26/21 04:55 quetiapine [From Seroquel] Allergy Verified 10/26/21 04:55 Exam Data for Last 24 hours Vital signs and Labs for Last 24 Hours: Temp Pulse Resp BP Pulse Ox O2 Del Method 97.9 F 84 16 168/86 H 97 Room Air 03/16/23 20:30 03/16/23 20:30 03/16/23 20:30 03/16/23 20:30 03/16/23 20:00 03/16/23 20:30 Laboratory Results - last 24 hr 03/16/23 16:08: WBC 7.1, RBC 4.84, Hgb 13.5, Hct 41.5, MCV 85.8, MCH 27.9, MCHC 32.6, RDW 15.1, Plt Count 260, MPV 8.3, Neut % (Auto) 75.4, Lymph % (Auto) 18.2, [place] % (Auto) 4.9, Eos % (Auto) 1.4, Baso % (Auto) 0.2, Neut # (Auto) 5.3, Lymph # (Auto) 1.3, [place] # (Auto) 0.3, Eos # (Auto) 0.1, Baso # (Auto)
--- NOTE | 2023-03-16 21:36 | PC.NURSE ---
med rec unable to be completed due to altered mental status.
[2023-03-16 23:21] LABS: Lactic Acid Follow Up (RFLX 1) 0.9 mmol/L (0.7-2.1)
[2023-03-16 23:34] LABS: Troponin I 0.01 ng/ml (0.00-0.034)
[2023-03-17] VITALS: BP 146/81; PULSE 80; RESP 18; TEMP 36.6; O2SAT 98
--- NOTE | 2023-03-17 00:15 | PC.NURSE ---
Had a visit from local PD officers: Geovanna, Teodora, and who stated that [facility] reported their resident missing as of 1 hour ago. Patient had arrived here via EMS approximately 1600 03/16/2023-- see those previous notes. Patient has been at our facility since her arrival, but according to dispatch and the officers here, [facility] has been rounding every 30 minutes and saying the patient has been there.
--- NOTE | 2023-03-17 00:30 | PC.NURSE ---
[place] the [place] was notified that pt. is here, they were already aware.
[2023-03-17 04:00] VITALS: BP 138/75; PULSE 79; RESP 18; TEMP 36.4; O2SAT 96; BMI 22.9
[2023-03-17 07:28] LABS: Basophils % 0.1 % (0.1-2.0); Eosinophils # 0.1 K/mm3 (0.0-0.4); Eosinophils % 3.5 % (0.1-12.0); Hematocrit 38.2 % (37.0-47.0); Hemoglobin 12.7 g/dL (12.2-16.2); Lymphocytes # 1.2 K/mm3 (0.7-4.5); Lymphocytes % 31.8 % (10-50); Mean Corpuscular HGB Conc 33.2 g/dL (31.8-35.4); Mean Corpuscular Volume 87.4 fl (81-99); Mean Platelet Volume 8.3 fl (7.4-10.4); Monocytes # 0.3 K/mm3 (0.1-1.0); Monocytes % 8.2 % (1.7-9.3); Neutrophils # 2.2 K/mm3 (1.8-7.8); Neutrophils % 56.5 % (37.0-80.0); Platelet Count 197 K/mm3 (142-424); Red Blood Count 4.37 M/mm3 (4.20-5.40); Red Cell Distribution Width 15.3 % (11.5-17.5); White Blood Count 3.9 K/mm3 (4.8-10.8)
[2023-03-17 07:36] LABS: Chloride 105 mmol/L (98-107)
[2023-03-17 07:37] LABS: Sodium 142 mmol/L (136-145)
[2023-03-17 07:39] LABS: Alanine Aminotransferase 31 U/L (12-78); Aspartate Amino Transferase 30 U/L (14-36); Blood Urea Nitrogen 9 mg/dl (7-17); Creatinine Clearance Estimated 59 mL/min (50-200); Estimated Glomerular Filt Rate 85 ml/min (>60); GFR (African American) 102 ML/MIN (>60)
[2023-03-17 07:40] LABS: Albumin Level 3.1 g/dl (3.5-5.0); Albumin/Globulin Ratio 1.1 (1.1-1.8); Alkaline Phosphatase 81 U/L (38-126); Bilirubin,Total 1.1 mg/dl (0.2-1.3); Calcium 8.3 mg/dl (8.4-10.2); Carbon Dioxide 27 mmol/L (22.0-30.0); Chol/HDL Ratio 3.9 (1-3.5); Cholesterol 177 mg/dl (140-200); Globulin 2.7 g/dL (1.3-3.2); Glucose 81 mg/dl (74-100); HDL Cholesterol 45 mg/dl (40-60); Magnesium 1.6 mg/dl (1.6-2.3); Phosphorous 3.2 mg/dl (2.5-4.5); Total Protein,Serum 5.8 g/dl (6.3-8.2); Triglycerides 164 mg/dl (30-150); VLDL Cholesterol 33 mg/dL (0-40)
[2023-03-17 07:46] VITALS: BP 158/96; PULSE 73; RESP 16; TEMP 36.4; O2SAT 97
[2023-03-17 07:51] LABS: Direct LDL Cholesterol 81.54 mg/dL (100-129)
--- NOTE | 2023-03-17 08:30 | EXP.PHA.CONS ---
Pharmacy Consult Date: 03/17/23 Time: 08:30 Referring provider: DR COBB Reason for Consult:: VANCOMYCIN DOSING CONSULT Allergies Allergy/AdvReac Type Severity Reaction Status Date / Time codeine Allergy Verified 10/26/21 04:55 omeprazole Allergy Verified 10/26/21 04:55 quetiapine [From Seroquel] Allergy Verified 10/26/21 04:55 Home Medications Medication Instructions Recorded Confirmed Type alendronate 70 mg tablet 70 mg PO WEEKLY bones 07/05/21 10/26/21 History atorvastatin 20 mg tablet 20 mg PO HS Cholesterol 07/05/21 10/26/21 History levetiracetam 750 mg tablet 750 mg PO BID seizures 07/05/21 10/26/21 History lorazepam 0.5 mg tablet (Ativan) 0.5 mg PO Q8H anxiety #90 tabs 10/20/21 10/26/21 Rx phenazopyridine 200 mg tablet 200 mg PO DIRECTED uti 10/25/21 10/26/21 History carvedilol 3.125 mg tablet 3.125 mg PO BID High blood pressure 10/26/21 10/26/21 History donepezil 5 mg tablet 5 mg PO DAILY Memory 10/26/21 10/26/21 History levofloxacin 750 mg tablet 750 mg PO DAILY #5 tabs 10/26/21 Rx levothyroxine 75 mcg tablet 75 mcg PO DAILY hypothyroidism 10/26/21 10/26/21 History ofumegxe-yor-bbadr acid 0.4 1 each PO DAILY Supplement 10/26/21 10/26/21 History mg-lycopene 300 mcg-lutein 250 mcg tablet pantoprazole 40 mg tablet,delayed 40 mg PO DAILY Indigestion 10/26/21 10/26/21 History release trazodone 50 mg tablet 50 mg PO HS PRN Insomnia 10/26/21 10/26/21 History venlafaxine 150 mg 150 mg PO DAILY Depression 10/26/21 10/26/21 History capsule,extended release 24 hr ibuprofen 400 mg tablet 400 mg PO TID PRN pain #20 tabs 11/18/22 Rx clonazepam 0.5 mg tablet (Klonopin) 0.5 mg PO BID #60 tabs 12/21/22 Rx risperidone 0.5 mg tablet See Rx Instructions .Route 02/14/23 Rx .COMPLEX #30 ea buspirone 5 mg tablet 5 mg PO TID #90 tabs 02/18/23 Rx mirtazapine 15 mg tablet 15 mg PO HS #30 tabs 02/18/23 Rx New Prescriptions to Start Prescriptions: Height: 1.68 m Weight: 64.864 kg Laboratory Results:: Laboratory Results - last 24 hr 03/16/23 16:08: WBC 7.1, RBC 4.84, Hgb 13.5, Hct 41.5, MCV 85.8, MCH 27.9, MCHC 32.6, RDW 15.1, Plt Count 260, MPV 8.3, Neut % (Auto) 75.4, Lymph % (Auto) 18.2, [place] % (Auto) 4.9, Eos % (Auto) 1.4, Baso % (Auto) 0.2, Neut # (Auto) 5.3, Lymph # (Auto) 1.3, [place] # (Auto) 0.3, Eos # (Auto) 0.1, Baso # (Auto) 0.0, Sodium 144, Potassium 3.1 L, Chloride 102, Carbon Dioxide 26, Anion Gap 19.1 H, BUN 13, Creatinine 0.90, Estimated GFR 63, Est GFR ( Amer) 77, Glucose 110 H, Lactate 2.2 H, Calcium 8.8, Total Bilirubin 1.1, AST 36, ALT 41, Alkaline Phosphatase 92, Total Creatine Kinase 230 H, Troponin I 0.01, Total Protein 6.8, Albumin 3.8, Globulin 3.0, Albumin/Globulin Ratio 1.3, TSH 5.41 H, Thyroxine (T4) 11.1 H, Salicylates < 1.0 L, Acetaminophen < 10 L 03/16/23 16:15: Urine Color Dk yellow, Urine Appearance Sl cloudy, Urine pH 6.0, Ur Specific [place] >= 1.030, Urine Protein 1+, Urine Glucose (UA) Negative, Urine Ketones Negative, Urine Blood Negative, Urine Nitrate Positive, Urine Bilirubin 2+ A, Urine Urobilinogen 1.0, Ur Leukocyte Esterase Trace, Urine RBC None, Urine WBC 3-5, Ur Squamous Epith Cells None, Urine Bacteria 4+, Urine Opiates Screen Negative, Urine Methadone Screen Negative, Ur Barbituates Screen Negative, Ur Phencyclidine Scrn Negative, Ur Amphetamines Screen Negative, U Benzodiazepines Scrn Positive H, Urine Cocaine Screen Negative, U Marijuana (THC) Screen Negative 03/16/23 16:24: VBG pH 7.45 H, VBG pCO2 36.9, VBG pO2 85.3 H, VBG HCO3 25.1, VBG Total CO2 26.3, VBG O2 Saturation 96.6 H, VBG Base Excess 1.2 03/16/23 19:16: Troponin I < 0.01 03/16/23 23:05: Lactate 0.9, Troponin I 0.01 03/17/23 07:19: WBC 3.9 L D, RBC 4.37, Hgb 12.7, Hct 38.2, MCV 87.4, MCH 29.0, MCHC 33.2, RDW 15.3, Plt Count 197, MPV 8.3, Neut % (Auto) 56.5, Lymph % (Auto) 31.8, [place] % (Auto) 8.2, Eos % (Auto) 3.5, Baso % (Auto) 0.1, Neut # (Auto) 2.2, Lymph # (Auto) 1.2, [place] # (Auto) 0.3, Eos # (Auto) 0.1, Bas
[2023-03-17 11:10] VITALS: BP 150/87; PULSE 89; RESP 18; TEMP 36.6; O2SAT 98
--- NOTE | 2023-03-17 12:12 | HMH.PTEV ---
Physical Therapy Evaluation Rehab PT IP Evaluation Start: 03/16/23 20:28 Freq: ONCE Status: Active Protocol: Document 03/17/23 12:08 PHORNE (Rec: 03/17/23 12:12 PHORNE [id number]) Subjective/History History History 62 yowf adm to [facility] with AMS, Sepsis, UTI. She has hx of seizure disorder, hypothyroid, COPD, HLD, HTN. She reports she lives alone, 4 steps to enter the hoem and she was using a cane or RW for all ambulation prior to adm. No family present to assist with hx and pt is somewhat confused this am, no clear way to be sure of baseline living situation. Subjective Subjective Pt is confused this am, but has no current c/o. Rehab PT IP Eval Objective Appearance Patient Behavior Confused Patient Orientation Person Difficulty following instructions mild Speech Pattern Clear Ambulation Patient Able to Ambulate Yes Ambulation Observation IP General Gait Pattern Observation Shuffling Step Ambulation Distance (feet) 5 Ambulation Assistive Device None Ambulation Ability Minimal x 1 (25% assist) Balance Ability to Arise Able, uses arms to help Sitting Balance Leans or slides in chair Standing Balance Unsteady Dynamic Sitting Balance Ability Fair Dynamic Standing Balance Ability Poor Transfers Bed Transfer Ability Minimal x 1 (25% assist) Chair Transfer Ability Minimal x 1 (25% assist) Sit to Stand Bed Transfer Ability Minimal x 1 (25% assist) Sit to Stand Chair Transfer Ability Minimal x 1 (25% assist) ROM All Extremities PT ROM Status WFL MMT All Extremities PT MMT WFL Rehab PT IP prob,goals,plan Problems Date of Evaluation: 03/17/23 PT IP Problems Bed Mobility,Transfers,Gait Rehab Potential Rehab Potential Good Plan PT Intervention Plan Bed Mobility,Transfers,Gait, Therapeutic Exercise PT Plan Frequency Daily Duration LOS Discharge Goals Bed Transfer Ability Contact Guard/Hand Hold Sit to Stand Chair Transfer Ability Contact Guard/Hand Hold Ambulation Assistive Device Rolling Walker Ambulation Distance (feet) 20 Discharge Plan PT Discharge Plan Pt is currently most appropriate for rehab
--- NOTE | 2023-03-17 13:57 | P.CONPHA_ITS ---
Pharmacy Intervention Comments: MEDICATION RECONCILIATION COMPLETE [facility] MAR.
--- NOTE | 2023-03-17 13:57 | HMH.PHAINT1 ---
Pharmacy Intervention Comments: MEDICATION RECONCILIATION [facility]PLETE [facility] MAR.
[2023-03-17 15:16] VITALS: BP 148/87; PULSE 90; RESP 16; TEMP 36.4; O2SAT 97
--- NOTE | 2023-03-17 17:07 | PC.NURSE ---
PT IS A&OX2. CONFUSED TO WHERE SHE IS, AND HAS BEEN TALKING TO PEOPLE WHO AREN'T ACTUALLY HERE. PT HAS RESTED IN BED MAJORITY OF SHIFT. DID STAND UP WITH P-T. PT VOICES WHEN SHE NEEDS TO VOID, UP WITH X1-2 ASSIST TO BEDSIDE COMMODE. BED SAFETY ON. PT HAS HAD NO NEEDS OR C/O NOTED THUS FAR. VSS.
--- NOTE | 2023-03-17 19:21 | EXP.ACUTE.PN ---
Subjective *Date: 03/17/23 *Time: 19:21 Interval history: On morning rounds patient was frankly confused. Minimal response to verbal questioning. Alert and oriented, opens eyes spontaneously. Tries to talk and answer questions. Able to move extremities. Afebrile and hemodynamically stable. On room air. On afternoon exam, patient asked if somebody could help her go to the bathroom. States she is feeling somewhat better. Is still slow to respond but having improvement in her mentation. Medical Exam Vital signs and Labs for Last 24 Hours: Vital Signs Temp Pulse Pulse Resp BP BP Pulse Ox 03/17/23 18:48 03/17/23 16:58 03/17/23 15:16 97.5 F L 90 16 148/87 H 97 03/17/23 14:35 03/17/23 12:43 03/17/23 11:10 97.9 F 89 18 150/87 H 98 03/17/23 10:41 03/17/23 09:00 03/17/23 08:00 03/17/23 07:46 97.6 F 73 16 158/96 H 97 03/17/23 04:00 97.6 F 79 18 138/75 96 03/17/23 06:53 03/17/23 05:00 03/17/23 03:00 03/17/23 01:00 03/16/23 23:00 03/17/23 00:00 97.9 F 80 18 146/81 H 98 03/16/23 21:16 97.7 F 80 18 179/90 H 99 03/16/23 21:41 03/16/23 21:37 03/16/23 20:30 97.9 F 84 16 168/86 H 03/16/23 20:00 88 168/86 H 97 03/16/23 19:30 89 144/88 H 98 O2 Del Method 03/17/23 18:48 Room Air 03/17/23 16:58 Room Air 03/17/23 15:16 Room Air 03/17/23 14:35 Room Air 03/17/23 12:43 Room Air 03/17/23 11:10 Room Air 03/17/23 10:41 Room Air 03/17/23 09:00 Room Air 03/17/23 08:00 Room Air 03/17/23 07:46 Room Air 03/17/23 04:00 Room Air 03/17/23 06:53 Room Air 03/17/23 05:00 Room Air 03/17/23 03:00 Room Air 03/17/23 01:00 Room Air 03/16/23 23:00 Room Air 03/17/23 00:00 Room Air 03/16/23 21:16 Room Air 03/16/23 21:41 Room Air 03/16/23 21:37 Room Air 03/16/23 20:30 Room Air 03/16/23 20:00 Room Air 03/16/23 19:30 Room Air Intake and Output 03/17/23 03/17/23 03/17/23 07:59 15:59 23:59 Intake Total 1209 / 1329 0 / 1329 120 / 1329 Output Total 0 / 0 0 / 0 Balance 1209 / 1329 0 / 1329 120 / 1329 Intake: Intake, Oral Amount 300 / 420 0 / 420 120 / 420 Intake, Total IV Amount 909 / 909 0.9 % Sodium Chloride 1000ML 1, 444 / 444 000 ml @ 50 mls/hr IV .Q20H [facility] Rx#:[id number] KCl 10mEq/100ml 100 ml @ 100 165 / 165 mls/hr IV Q1H [facility] Rx#:[id number] Vancomycin/Water For Inj (Peg) 300 / 300 1.5 gm In 300 ml @ 150 mls/hr IV ONCE ONE Rx#:[id number] Output: Output, Urine Amount 0 / 0 0 / 0 Other: Number of Unmeasured Voids 1 1 Weight 64.864 kg 64.864 kg Patient Weight 03/17/23 23:59 Weight 64.864 kg Laboratory Results - last 24 hr 03/16/23 16:15: Urine Color Dk yellow, Urine Appearance Sl cloudy, Urine pH 6.0, Ur Specific [place] >= 1.030, Urine Protein 1+, Urine Glucose (UA) Negative, Urine Ketones Negative, Urine Blood Negative, Urine Nitrate Positive, Urine Bilirubin 2+ A, Urine Urobilinogen 1.0, Ur Leukocyte Esterase Trace, Urine RBC None, Urine WBC 3-5, Ur Squamous Epith Cells None, Urine Bacteria 4+ 03/16/23 19:16: Troponin I < 0.01 03/16/23 23:05: Lactate 0.9, Troponin I 0.01 03/17/23 07:19: WBC 3.9 L D, RBC 4.37, Hgb 12.7, Hct 38.2, MCV 87.4, MCH 29.0, MCHC 33.2, RDW 15.3, Plt Count 197, MPV 8.3, Neut % (Auto) 56.5, Lymph % (Auto) 31.8, [place] % (Auto) 8.2, Eos % (Auto) 3.5, Baso % (Auto) 0.1, Neut # (Auto) 2.2, Lymph # (Auto) 1.2, [place] # (Auto) 0.3, Eos # (Auto) 0.1, Baso # (Auto) 0.0, Sodium 142, Potassium 3.0 L, Chloride 105, Carbon Dioxide 27, Anion Gap 13.0, BUN 9 D, Creatinine 0.70 D, Estimated Creat Clear 59, Estimated GFR 85, Est GFR ( Amer) 102 D, Glucose 81 D, Calcium 8.3 L, Phosphorus 3.2, Magnesium 1.6, Total Bilirubin 1.1, AST 30, ALT 31, Alkaline Phosphatase 81, Total Protein 5.8 L, Albumin 3.1 L D, Globulin 2.7, Albumin/Globulin Ratio 1.1, Triglycerides 1
[2023-03-17 20:00] VITALS: BP 173/104; PULSE 89; RESP 18; TEMP 36.7; O2SAT 98
[2023-03-18] VITALS: BP 153/89; PULSE 77; TEMP 36.5; O2SAT 95
[2023-03-18 04:00] VITALS: BP 160/96; PULSE 90; RESP 18; TEMP 37.4; O2SAT 95; BMI 23.0
--- NOTE | 2023-03-18 06:00 | PC.NURSE ---
Patient at start of shift had elevated BP with routine meds ordered to restart tonight. PM/HS meds given, BP rechecked at midnight and BP much improved yet still slightly elevated. Patient rested with eyes closed all throughout the night. LCTA, bed at lowest level, call light within reach.
[2023-03-18 07:05] LABS: MANUAL DIFFERENTIAL MANUAL DIFFERENTIAL (MANUAL DIFF)
[2023-03-18 07:18] LABS: Basophils % 0.2 % (0.1-2.0); Eosinophils # 0.1 K/mm3 (0.0-0.4); Eosinophils % 2.5 % (0.1-12.0); Hematocrit 37.1 % (37.0-47.0); Hemoglobin 12.2 g/dL (12.2-16.2); Lymphocytes % 36.2 % (10-50); Mean Corpuscular HGB Conc 32.8 g/dL (31.8-35.4); Mean Corpuscular Hemoglobin 28.5 pg (27.0-31.2); Mean Corpuscular Volume 87.1 fl (81-99); Mean Platelet Volume 8.7 fl (7.4-10.4); Monocytes # 0.3 K/mm3 (0.1-1.0); Monocytes % 5.9 % (1.7-9.3); Neutrophils % 55.2 % (37.0-80.0); Platelet Count 209 K/mm3 (142-424); Red Blood Count 4.26 M/mm3 (4.20-5.40); Red Cell Distribution Width 15.1 % (11.5-17.5); White Blood Count 5.4 K/mm3 (4.8-10.8)
[2023-03-18 07:22] LABS: Chloride 110 mmol/L (98-107); Potassium 3.3 mmoL/L (3.5-5.1); Sodium 141 mmol/L (136-145)
[2023-03-18 07:25] LABS: Anion Gap 12.3 mEq/L (5-15); Blood Urea Nitrogen 5 mg/dl (7-17); Calcium 7.8 mg/dl (8.4-10.2); Carbon Dioxide 22 mmol/L (22.0-30.0); Creatine Kinase 92 U/L (30-135); Creatinine Clearance Estimated 59 mL/min (50-200); Estimated Glomerular Filt Rate 125 ml/min (>60); GFR (African American) 151 ML/MIN (>60); Glucose 65 mg/dl (74-100); Magnesium 1.6 mg/dl (1.6-2.3)
[2023-03-18 08:00] VITALS: BP 148/76; PULSE 71; RESP 17; TEMP 37; O2SAT 97
--- NOTE | 2023-03-18 08:46 | SW/DCPLANNER ---
Addendum entered by [facility] 03/22/23 10:37: Patient will discharge to [facility] ICF level of are today. Addendum entered by [facility] 03/21/23 14:57: Diana fernandes/ [facility] ([phone]) stated that she can accept this patient tomorrow. I will update Naty fernandes/ [facility], and patient. Addendum entered by [facility] 03/21/23 13:42: Oliver fernandes/ [facility] stated they can not accept patient at this time: including all other [facility] facilities. Addendum entered by [facility] 03/21/23 13:01: Lali w/ [facility] stated that she is not able to accept this patient due to the need for ELIZA pending and payment up front. I called and spoke w/ patient's Guardian (Naty) regarding situation. Naty asked that we exhaust all LTC facilities prior to sending information to [facility]. Patient information has been faxed to [facility], [facility], [facility] and [facility]. I will continue to follow up with facilities and Naty fernandes/ [facility]. Addendum entered by [facility] 03/20/23 13:14: Stefanie fernandes/ [facility] stated that she is able to accept this patient. I have updated patient, , [facility] and patient's State Guardian. I have also attempted to contact patient's sister: no answer at this time. Addendum entered by [facility] 03/20/23 08:01: Stefanie fernandes/ [facility] is onsite evaluating patient this AM. Addendum entered by [facility] 03/19/23 10:29: Stefanie fernandes/ [facility] will be onsite to evaluate this patient today. I have updated patient's Guardian (Naty). Addendum entered by [facility] 03/19/23 09:57: [facility] has stated that [facility] is not an option at this time and requested that information be faxed to [facility]. I have faxed information to Diana fernandes/ Eliud at [facility] at this time. [facility] fax #: [phone] Addendum entered by [facility] 03/19/23 07:48: Therese fernandes/ [facility] stated they are unable to accept this patient. I will call and update Guardian this AM. Patient information will be fax[facility] to [facility], [facility], [facility] and [facility]. Addendum entered by Margot Holguin 03/18/23 13:49: Blade fernandes/ [facility] will be onsite to evaluate this patient today. Addendum entered by Margot Holguin 03/18/23 12:01: Dora fernandes/ [facility] has denied this patient. Therese fernandes/ [facility] is currently reviewing patient information. Patient will be ready for discharge tomorrow pending no setbacks. Original Note: This patient currently resides at [facility]. PT/OT is ordered to evaluate patient this AM. I spoke w/ patient's Guardian regarding placement: agreeable to placement in [place]. I will began searching for placement for this patient today. Discharge date is unknown at this time. I will fax patient information to [facility] and [facility].
--- NOTE | 2023-03-18 09:51 | HMH.OTEV ---
OT Inpatient Evaluation Rehab OT IP Evaluation Start: 03/16/23 20:28 Freq: ONCE Status: Active Protocol: Document 03/18/23 09:47 [facility] (Rec: 03/18/23 09:51 [facility] [id number]) Rehab OT IP Assessment Subjective History Pt oriented to self on arrival . Delayed response time when asked any questions due to possible continued confusion. Pt is a 62 yowf adm to [facility] with AMS, Sepsis, UTI. She has hx of seizure disorder, hypothyroid, COPD, HLD, HTN. She reports she lives alone, 4 steps to enter the home and she was using a cane or RW for all ambulation prior to adm. No family present to assist with hx and pt is somewhat confused this am. However, pt does claim she was independent with all ADLs prior to being in the hospital . Pt also reports her daughter would assist with IADLs such as grocery shopping . She no longer drives. Subjective My daughter helps. Objective Patient Orientation Person Upper Extremity Gross ROM WFL Bed Mobility bed mobility-scooting,bed mobility - supine/sit,bed mobility - rolling Assist Level Minimal x 1 (25% assist) Transfer Training Sit/Stand/Step Transfer Assist Level Minimal x 1 (25% assist) Rehab OT IP prob,goals,plan Problems Date of Evaluation: 03/18/23 OT IP Problems Bed Mobility,Transfers,Balance ,Self care,Safety Rehab Potential Rehab Potential Good Equipment Needs Assistive Devices Rolling / Wheeled Walker Plan OT intervention Plan Bed Mobility,Transfers,Balance ,Self care,Safety,Therapeutic Exercise OT Plan Frequency BID Duration LOS Discharge Goals Bed Mobility Ability Assistance x1 Sit to Stand Chair Transfer Ability Contact Guard/Hand Hold Chair Transfer Ability Contact Guard/Hand Hold Chair Transfer Technique Sit to/from Ambulatory Chair Transfer Assistive Devices Rolling Walker Feeding Ability Assist with Tray Set Up Lower Body Dress
[2023-03-18 10:19] VITALS: BMI 23.0
[2023-03-18 10:41] LABS: Lymphocytes % 35 % (10-50); Monocytes % 3 % (2-9); Neutrophils % 62 % (42-76); Platelet Estimate Normal; RBC Morphology Normal; Total Cells Counted 100
[2023-03-18 16:00] VITALS: BP 178/82; PULSE 75; RESP 19; TEMP 36.5; O2SAT 96
--- NOTE | 2023-03-18 17:22 | INFXCTL.NOTE ---
Patient alert an oriented to self. Patientis slow to respond to questions and requires prompting to eat.
--- NOTE | 2023-03-18 17:59 | EXP.ACUTE.PN ---
Subjective *Date: 03/18/23 *Time: 18:09 Interval history: Patient is who she is this morning. Cannot tell me her birthdate however, where she is, or why she is at the hospital. Denies any pain or discomfort. Recognizes she is confused. Denies shortness of breath, nausea, vomiting. Stable on room air and hemodynamically stable. Urine culture returned positive for E. coli. Medical Exam Vital signs and Labs for Last 24 Hours: Vital Signs Temp Pulse Resp BP Pulse Ox O2 Del Method 03/18/23 08:00 98.6 F 71 17 148/76 H 97 Room Air 03/18/23 07:00 Room Air 03/18/23 05:00 Room Air 03/18/23 04:00 99.4 F 90 18 160/96 H 95 Room Air 03/18/23 03:00 Room Air 03/18/23 01:00 Room Air 03/18/23 00:00 97.7 F 77 153/89 H 95 Room Air 03/17/23 23:00 Room Air 03/17/23 21:00 Room Air 03/17/23 20:00 Room Air 03/17/23 20:00 98.0 F 89 18 173/104 H 98 Room Air 03/17/23 18:48 Room Air Intake and Output 03/18/23 03/18/23 03/18/23 07:59 15:59 23:59 Intake Total 600 / 840 240 / 840 Output Total 0 / 0 0 / 0 Balance 600 / 840 240 / 840 Intake: Intake, Oral Amount 240 / 240 Intake, Total IV Amount 600 / 600 0.9 % Sodium Chloride 1000ML 1, 600 / 600 000 ml @ 50 mls/hr IV .Q20H [facility] Rx#:[id number] Output: Output, Urine Amount 0 / 0 0 / 0 Other: Number of Voids 0 Number of Unmeasured Voids 1 Weight 65.062 kg 65 kg Patient Weight 03/18/23 23:59 Weight 65 kg Laboratory Results - last 24 hr 03/18/23 06:25: WBC 5.4 D, RBC 4.26, Hgb 12.2, Hct 37.1, MCV 87.1, MCH 28.5, MCHC 32.8, RDW 15.1, Plt Count 209, MPV 8.7, Neut % (Auto) 55.2, Lymph % (Auto) 36.2, [place] % (Auto) 5.9, Eos % (Auto) 2.5, Baso % (Auto) 0.2, Neut # (Auto) 3.0, Lymph # (Auto) 2.0, [place] # (Auto) 0.3, Eos # (Auto) 0.1, Baso # (Auto) 0.0, Total Counted 100, Neutrophils % (Manual) 62, Lymphocytes % (Manual) 35, Monocytes % (Manual) 3, Platelet Estimate Normal, RBC Morphology Normal, Sodium 141, Potassium 3.3 L, Chloride 110 H, Carbon Dioxide 22, Anion Gap 12.3, BUN 5 L D, Creatinine 0.50 L D, Estimated Creat Clear 59, Estimated GFR 125, Est GFR ( Amer) 151 D, Glucose 65 L, Calcium 7.8 L, Magnesium 1.6, Total Creatine Kinase 92 I & O for Labs for Last 24 Hours: Intake & Output 03/15/23 03/16/23 03/17/23 03/18/23 23:59 23:59 23:59 23:59 Intake Total 1329 / 1329 840 / 840 Output Total 0 / 0 0 / 0 Balance 1329 / 1329 840 / 840 Weight 62.171 kg 64.864 kg 65 kg Microbiology Reports for the Last 24 Hours: Microbiology 03/16/23 17:13 Blood Blood Culture - Preliminary NO GROWTH AFTER 48 HOURS 03/16/23 16:08 Blood Blood Culture - Preliminary NO GROWTH AFTER 48 HOURS 03/16/23 16:15 Urine,Catheterized Urine Culture - Final Escherichia coli Constitutional: Present no acute distress, average body habitus, chronically ill appearing and cooperative Head: Present atraumatic and normocephalic ENT: Present normal exam Comment:: right eye deviates laterally at baseline, Respiratory: Present normal respiratory effort; Absent rhonchi, wheezes or crackles Cardiac: Present Reg Rate and Rhythm GI: Present soft and normal bowel sounds; Absent distention or tenderness Extremities: Present normal inspection and full ROM Skin: Present intact; Absent erythema Neuro: Present alert, awake and moves all extremities Comment:: oriented to self only, follows commands Assessment and Plan *Assessment and plan (1) Toxic encephalopathy: Status: Acute Category: Medical Code(s): G92.9 - Unspecified toxic encephalopathy (2) Rhabdomyolysis: Status: Acute Qualifiers: Rhabdomyolysis type: non-traumatic Qualified Code(s): M62.82 - Rhabdomyolysis Category: Medical Code(s): M62.82 - Rhabdomyolysis (3) UTI (urinary tract infection
[2023-03-18 20:00] VITALS: BP 163/85; PULSE 82; RESP 18; TEMP 36.6; O2SAT 97
[2023-03-19] VITALS: BP 161/85; PULSE 75; RESP 18; TEMP 36.6; O2SAT 94
[2023-03-19 04:00] VITALS: BP 167/94; PULSE 75; RESP 18; TEMP 36.7; O2SAT 95; BMI 22.4
[2023-03-19 06:39] LABS: Basophils % 0.5 % (0.1-2.0); Eosinophils # 0.2 K/mm3 (0.0-0.4); Eosinophils % 4.2 % (0.1-12.0); Hematocrit 38.9 % (37.0-47.0); Hemoglobin 12.9 g/dL (12.2-16.2); Lymphocytes # 1.4 K/mm3 (0.7-4.5); Lymphocytes % 35.4 % (10-50); Mean Corpuscular HGB Conc 33.2 g/dL (31.8-35.4); Mean Corpuscular Hemoglobin 29.2 pg (27.0-31.2); Mean Corpuscular Volume 88.1 fl (81-99); Mean Platelet Volume 8.8 fl (7.4-10.4); Monocytes # 0.3 K/mm3 (0.1-1.0); Monocytes % 7.4 % (1.7-9.3); Neutrophils # 2.1 K/mm3 (1.8-7.8); Neutrophils % 52.5 % (37.0-80.0); Platelet Count 191 K/mm3 (142-424); Red Blood Count 4.42 M/mm3 (4.20-5.40); Red Cell Distribution Width 15.2 % (11.5-17.5)
[2023-03-19 06:44] LABS: Chloride 110 mmol/L (98-107); Potassium 3.5 mmoL/L (3.5-5.1); Sodium 140 mmol/L (136-145)
[2023-03-19 06:46] LABS: Alanine Aminotransferase 20 U/L (12-78); Aspartate Amino Transferase 25 U/L (14-36); Blood Urea Nitrogen 3 mg/dl (7-17); Creatinine Clearance Estimated 58 mL/min (50-200); Estimated Glomerular Filt Rate 161 ml/min (>60); GFR (African American) 195 ML/MIN (>60)
[2023-03-19 06:47] LABS: Albumin Level 2.9 g/dl (3.5-5.0); Albumin/Globulin Ratio 1.2 (1.1-1.8); Alkaline Phosphatase 76 U/L (38-126); Anion Gap 10.5 mEq/L (5-15); Bilirubin,Total 0.8 mg/dl (0.2-1.3); Calcium 8.1 mg/dl (8.4-10.2); Carbon Dioxide 23 mmol/L (22.0-30.0); Globulin 2.5 g/dL (1.3-3.2); Glucose 81 mg/dl (74-100); Magnesium 2.1 mg/dl (1.6-2.3); Total Protein,Serum 5.4 g/dl (6.3-8.2)
[2023-03-19 08:00] VITALS: BP 162/78; PULSE 78; RESP 21; TEMP 36.4; O2SAT 97
--- NOTE | 2023-03-19 08:18 | ECG_ITS ---
APPROVED REPORT Exam: Resting ECG HR:77 bpm ECG Measurements Heart Rate 77 AXES IL 125 P 85 QRSd 74 QRS 37 QT 397 T 61 QTc [address] DEVIATION AND MODERATE T-WAVE ABNORMALITY, CONSIDER ANTERIOR ISCHEMIA [-0.1+ mV T-WAVE IN V3/V4] ABNORMAL ECG UNCONFIRMED REPORT Electronically signed by : Marco Adrian MD 03/21/2023 18:47:32
--- NOTE | 2023-03-19 08:52 | EXP.PN ---
Subjective *Date: 03/19/23 *Time: 08:00 Interval history: The patient is nonverbal during my exam. Per RN the patient's cooperation has been intermittent. No acute events overnight. Exam Data for Last 24 hours Vital signs and Labs for Last 24 Hours: Temp Pulse Resp BP Pulse Ox O2 Del Method 97.6 F 78 21 162/78 H 97 Room Air 03/19/23 08:00 03/19/23 08:00 03/19/23 08:00 03/19/23 08:00 03/19/23 08:00 03/19/23 08:00 Laboratory Results - last 24 hr 03/18/23 06:25: Total Counted 100, Neutrophils % (Manual) 62, Lymphocytes % (Manual) 35, Monocytes % (Manual) 3, Platelet Estimate Normal, RBC Morphology Normal 03/19/23 06:20: WBC 4.0 L D, RBC 4.42, Hgb 12.9, Hct 38.9, MCV 88.1, MCH 29.2, MCHC 33.2, RDW 15.2, Plt Count 191, MPV 8.8, Neut % (Auto) 52.5, Lymph % (Auto) 35.4, [place] % (Auto) 7.4, Eos % (Auto) 4.2, Baso % (Auto) 0.5, Neut # (Auto) 2.1, Lymph # (Auto) 1.4, [place] # (Auto) 0.3, Eos # (Auto) 0.2, Baso # (Auto) 0.0, Sodium 140, Potassium 3.5, Chloride 110 H, Carbon Dioxide 23, Anion Gap 10.5, BUN 3 L D, Creatinine 0.40 L, Estimated Creat Clear 58, Estimated GFR 161, Est GFR ( Amer) 195 D, Glucose 81 D, Calcium 8.1 L, Magnesium 2.1 D, Total Bilirubin 0.8, AST 25, ALT 20 D, Alkaline Phosphatase 76, Total Protein 5.4 L, Albumin 2.9 L, Globulin 2.5, Albumin/Globulin Ratio 1.2 I & O for Last 24 hours: Intake & Output 03/16/23 03/17/23 03/18/23 03/19/23 23:59 23:59 23:59 23:59 Intake Total 1329 / 1329 1080 / 1140 1133 / 1133 Output Total 0 / 0 500 / 900 600 / 600 Balance 1329 / 1329 580 / 240 533 / 533 Weight 62.171 kg 64.864 kg 65 kg 63.304 kg Microbiology Reports for the Last 24 Hours: Microbiology 03/16/23 17:13 Blood Blood Culture - Preliminary NO GROWTH AFTER 48 HOURS 03/16/23 16:08 Blood Blood Culture - Preliminary NO GROWTH AFTER 48 HOURS 03/16/23 16:15 Urine,Catheterized Urine Culture - Final Escherichia coli Constitutional Constitutional: no acute distress *Routine HEENT Exam Head: Present normocephalic Eye: Present EOMI and PERRL ENT: Present mucous membranes moist *Routine Neck Exam Neck: Present supple; Absent lymphadenopathy *Routine Respiratory Exam Respiratory: Present CTA bilaterally *Routine Cardiovascular Exam Cardiovascular: Present RRR *Routine Abdominal Exam Abdominal: Present soft and normoactive bowel sounds; Absent tenderness *Routine Extremities Exam Extremities: Absent cyanosis, clubbing or edema *Routine Skin Exam Skin: Present warm; Absent rash *Routine Neurological Exam Neurological: Present alert Comments: nonverbal follows simple commands Assessment and Plan *Assessment and plan (1) Toxic encephalopathy: Status: Acute Category: Medical Code(s): G92.9 - Unspecified toxic encephalopathy (2) Rhabdomyolysis: Status: Acute Qualifiers: Rhabdomyolysis type: non-traumatic Qualified Code(s): M62.82 - Rhabdomyolysis Category: Medical Code(s): M62.82 - Rhabdomyolysis (3) UTI (urinary tract infection): Status: Acute Qualifiers: Hematuria presence: with hematuria Urinary tract infection type: acute cystitis Qualified Code(s): N30.01 - Acute cystitis with hematuria Category: Medical Code(s): N39.0 - Urinary tract infection, site not specified (4) Acute hypokalemia: Status: Acute Category: Medical Code(s): E87.6 - Hypokalemia (5) Seizure disorder: Status: Chronic Category: Medical Code(s): G40.909 - Epilepsy, unspecified, not intractable, without status epilepticus (6) Hypertension: Status: Chronic Qualifiers: Hypertension type: unspecified Qualified Code(s): I10 - Essential (primary) hypertension Category: Medical Code(s): I10 - Essential (primary) hypertension (7) Depression: Status: Chron
[2023-03-19 09:31] LABS: Troponin I < 0.01 ng/ml (0.00-0.034)
--- NOTE | 2023-03-19 11:25 | DIET.NUTRFU ---
Addendum entered by Ciera Lee RD, LD 03/19/23 15:58: Saw patient again after lunch, staff cut up her meat. Patient was able to feed self and consumed 50% of mashed potatoes and 50% of chicken. She did not indicate she was having any chewing issues at that time, no coughing during meals. Tolerated beverages fine. Will start ensure with meals to provide additional calories and protein. Original Note: Patient indicated a swallowing issue to her nurse, meds were crushed. She is on regular, cardiac diet. Upon interview patient would only nodded head to yes and no questions. She did not want diet changed. Nursing staff indicated she tolerated a regular diet yesterday at lunch. Will follow up with lunch today to determine if diet change is needed. Social work is looking for placement, [facility] She is ibrahim of [facility] and not sure if daughter is involved with care, will contact social services aide.
[2023-03-19 12:00] VITALS: BP 161/84; PULSE 80; RESP 15; TEMP 36.7; O2SAT 94
[2023-03-19 16:00] VITALS: BP 133/68; PULSE 78; RESP 17; TEMP 36.6; O2SAT 97
[2023-03-19 16:14] LABS: Troponin I < 0.01 ng/ml (0.00-0.034)
--- NOTE | 2023-03-19 19:56 | PC.NURSE ---
Patient got up to chair for breakfast today. Patient up with 2 assist. Patient's vital signs stable.
[2023-03-19 20:00] VITALS: BP 143/77; PULSE 74; RESP 16; TEMP 37.1; O2SAT 96
[2023-03-19 20:56] LABS: Troponin I < 0.01 ng/ml (0.00-0.034)
[2023-03-20] VITALS (7 sets, daily range): BP systolic 126–158; BP diastolic 62–93; PULSE 72–88; RESP 16–18; TEMP 36.4–36.8; O2SAT 94–98; BMI 23.4
[2023-03-20 00:26] LABS: Troponin I < 0.01 ng/ml (0.00-0.034)
[2023-03-20 07:17] LABS: Basophils % 0.5 % (0.1-2.0); Eosinophils # 0.1 K/mm3 (0.0-0.4); Hematocrit 38.6 % (37.0-47.0); Hemoglobin 12.6 g/dL (12.2-16.2); Lymphocytes # 1.4 K/mm3 (0.7-4.5); Lymphocytes % 37.6 % (10-50); Mean Corpuscular HGB Conc 32.6 g/dL (31.8-35.4); Mean Corpuscular Hemoglobin 28.5 pg (27.0-31.2); Mean Corpuscular Volume 87.4 fl (81-99); Mean Platelet Volume 8.4 fl (7.4-10.4); Monocytes # 0.2 K/mm3 (0.1-1.0); Monocytes % 6.4 % (1.7-9.3); Neutrophils # 1.9 K/mm3 (1.8-7.8); Neutrophils % 52.6 % (37.0-80.0); Platelet Count 195 K/mm3 (142-424); Red Blood Count 4.41 M/mm3 (4.20-5.40); Red Cell Distribution Width 15.3 % (11.5-17.5); White Blood Count 3.6 K/mm3 (4.8-10.8)
[2023-03-20 07:23] LABS: Alanine Aminotransferase 19 U/L (12-78); Albumin Level 2.9 g/dl (3.5-5.0); Albumin/Globulin Ratio 1.1 (1.1-1.8); Alkaline Phosphatase 78 U/L (38-126); Anion Gap 11.7 mEq/L (5-15); Aspartate Amino Transferase 19 U/L (14-36); Bilirubin,Total 0.4 mg/dl (0.2-1.3); Blood Urea Nitrogen 5 mg/dl (7-17); Calcium 7.7 mg/dl (8.4-10.2); Carbon Dioxide 26 mmol/L (22.0-30.0); Chloride 108 mmol/L (98-107); Creatinine Clearance Estimated 60 mL/min (50-200); Estimated Glomerular Filt Rate 125 ml/min (>60); GFR (African American) 151 ML/MIN (>60); Globulin 2.7 g/dL (1.3-3.2); Glucose 87 mg/dl (74-100); Potassium 3.7 mmoL/L (3.5-5.1); Sodium 142 mmol/L (136-145); Total Protein,Serum 5.6 g/dl (6.3-8.2)
--- NOTE | 2023-03-20 13:43 | EXP.PN ---
Subjective *Date: 03/20/23 *Time: 13:43 Interval history: No acute events overnight. She is more cooperative this morning. She denies pain and has no complaints. Exam Data for Last 24 hours Vital signs and Labs for Last 24 Hours: Temp Pulse Resp BP Pulse Ox O2 Del Method 98.2 F 77 16 143/62 H 97 Room Air 03/20/23 11:48 03/20/23 11:48 03/20/23 11:48 03/20/23 11:48 03/20/23 11:48 03/20/23 11:48 Laboratory Results - last 24 hr 03/19/23 11:35: Troponin I < 0.01 03/19/23 20:20: Troponin I < 0.01 03/19/23 23:55: Troponin I < 0.01 03/20/23 06:55: WBC 3.6 L, RBC 4.41, Hgb 12.6, Hct 38.6, MCV 87.4, MCH 28.5, MCHC 32.6, RDW 15.3, Plt Count 195, MPV 8.4, Neut % (Auto) 52.6, Lymph % (Auto) 37.6, [place] % (Auto) 6.4, Eos % (Auto) 3.0, Baso % (Auto) 0.5, Neut # (Auto) 1.9, Lymph # (Auto) 1.4, [place] # (Auto) 0.2, Eos # (Auto) 0.1, Baso # (Auto) 0.0, Sodium 142, Potassium 3.7, Chloride 108 H, Carbon Dioxide 26, Anion Gap 11.7, BUN 5 L D, Creatinine 0.50 L D, Estimated Creat Clear 60, Estimated GFR 125, Est GFR ( Amer) 151 D, Glucose 87, Calcium 7.7 L, Total Bilirubin 0.4, AST 19, ALT 19, Alkaline Phosphatase 78, Total Protein 5.6 L, Albumin 2.9 L, Globulin 2.7, Albumin/Globulin Ratio 1.1 I & O for Last 24 hours: Intake & Output 03/17/23 03/18/23 03/19/23 03/20/23 23:59 23:59 23:59 23:59 Intake Total 1329 / 1329 1080 / 1140 1433 / 1433 1298 / 1298 Output Total 0 / 0 500 / 900 800 / 800 0 / 0 Balance 1329 / 1329 580 / 240 633 / 633 1298 / 1298 Weight 64.864 kg 65 kg 63.304 kg 66.179 kg Constitutional Constitutional: no acute distress *Routine HEENT Exam Head: Present normocephalic Eye: Present EOMI and PERRL ENT: Present mucous membranes moist *Routine Neck Exam Neck: Present supple; Absent lymphadenopathy *Routine Respiratory Exam Respiratory: Present CTA bilaterally *Routine Cardiovascular Exam Cardiovascular: Present RRR *Routine Abdominal Exam Abdominal: Present soft and normoactive bowel sounds; Absent tenderness *Routine Extremities Exam Extremities: Absent cyanosis, clubbing or edema *Routine Skin Exam Skin: Present warm; Absent rash *Routine Neurological Exam Neurological: Present alert and oriented X3 (oriented to person, hospital and year.); Absent tremors Assessment and Plan *Assessment and plan (1) Toxic encephalopathy: Status: Acute Category: Medical Code(s): G92.9 - Unspecified toxic encephalopathy (2) Rhabdomyolysis: Status: Acute Qualifiers: Rhabdomyolysis type: non-traumatic Qualified Code(s): M62.82 - Rhabdomyolysis Category: Medical Code(s): M62.82 - Rhabdomyolysis (3) UTI (urinary tract infection): Status: Acute Qualifiers: Hematuria presence: with hematuria Urinary tract infection type: acute cystitis Qualified Code(s): N30.01 - Acute cystitis with hematuria Category: Medical Code(s): N39.0 - Urinary tract infection, site not specified (4) Acute hypokalemia: Status: Acute Category: Medical Code(s): E87.6 - Hypokalemia (5) Seizure disorder: Status: Chronic Category: Medical Code(s): G40.909 - Epilepsy, unspecified, not intractable, without status epilepticus (6) Hypertension: Status: Chronic Qualifiers: Hypertension type: unspecified Qualified Code(s): I10 - Essential (primary) hypertension Category: Medical Code(s): I10 - Essential (primary) hypertension (7) Depression: Status: Chronic Qualifiers: Active/Remission status: currently active Depression Type: major depressive disorder Major depression episode severity: severe Major depression recurrence: recurrent Psychotic features: with psychotic features Qualified Code(s): F33.3 - Major depressive disorder, recurrent, severe with psychotic symptoms Category: Medical Code(s): F32.A - Depression, unspecified (8) Hypokalemia:
--- NOTE | 2023-03-20 16:24 | PC.NURSE ---
Addendum entered by Sangita Metcalf RN 03/20/23 17:24: PT WAS UP IN THE CHAIR FOR A FEW HOURS TODAY AND TOLERATED WELL. 1 PERSON ASSIST TO HELP TO BSC. PT ATE LUNCH WELL TODAY WITH NO COMPLAINTS OF ISSUES WITH SWALLOWING. HAND HOSIERY BAGGER EQUAL. BED ALARM ON TO PROMOTE SAFETY. BED IN LOWEST POSITION. SEIZURE PRECAUTIONS IN PLACE. VSS. PT HAS BEEN ALERT AT TIMES AND PLEASANTLY CONFUSED AT TIMES. Original Note: A&O TO NAME AND BIRTHDAY ONLY, RESPIRATIONS REGULAR AND UNLABORED. PT HAS TOLERATED RA WELL THROUGHOUT SHIFT. NO COUGH NOTED. LUNG SOUNDS CLEAR THROUGHOUT. HEART RATE REGULAR. +1 PULSES NOTED THROUGHOUT. NO EDEMA NOTED. NO PAIN REPORTED THUS FAR. ACTIVE BOWEL SOUNDS HEARD IN ALL 4 QUADRANTS. SOFT AND NONTENDER ABDOMEN. PT HAS HAD 1 BM THUS FAR. PT VOIDS PER BSC AND BRIEF. DOES HAVE EPISODES OF INCONTINENCE.
--- NOTE | 2023-03-20 20:12 | PC.NURSE ---
Daughters in room concerned that pt will be placed at [facility] and it is far from them. They are asking to check availability for pt at [facility] in [facility] so she can be closer to them before she is discharged. They are agreeable to [facility] if pt is not approved by [facility].
--- NOTE | 2023-03-20 20:15 | PC.NURSE ---
Daughter Alexandra Delaneyrd phone number- [phone]
[2023-03-21 04:00] VITALS: BP 144/75; PULSE 67; RESP 18; TEMP 36.8; O2SAT 96; BMI 23.0
--- NOTE | 2023-03-21 05:59 | PC.NURSE ---
Pt has not voiced any c/o to staff. Ambulated in hallway with x2 assist, tolerated well. Has slept well this shift. VSS. Bed alarm on and seizure pads in place for safety. Call light within reach.
[2023-03-21 07:41] VITALS: BP 145/90; PULSE 80; RESP 18; TEMP 36.4; O2SAT 96
[2023-03-21 08:00] VITALS: O2SAT 98
[2023-03-21 08:17] LABS: Alanine Aminotransferase 18 U/L (12-78); Albumin Level 3.1 g/dl (3.5-5.0); Albumin/Globulin Ratio 1.2 (1.1-1.8); Alkaline Phosphatase 76 U/L (38-126); Aspartate Amino Transferase 21 U/L (14-36); Bilirubin,Total 0.3 mg/dl (0.2-1.3); Blood Urea Nitrogen 4 mg/dl (7-17); Calcium 8.1 mg/dl (8.4-10.2); Carbon Dioxide 26 mmol/L (22.0-30.0); Chloride 108 mmol/L (98-107); Creatinine Clearance Estimated 59 mL/min (50-200); Estimated Glomerular Filt Rate 101 ml/min (>60); GFR (African American) 122 ML/MIN (>60); Globulin 2.6 g/dL (1.3-3.2); Glucose 94 mg/dl (74-100); Sodium 142 mmol/L (136-145); Total Protein,Serum 5.7 g/dl (6.3-8.2)
--- NOTE | 2023-03-21 09:42 | EXP.PHA.PN ---
Subjective *Date: 03/21/23 *Time: 09:42 Medical Exam Vital signs and Labs for Last 24 Hours: Vital Signs Temp Pulse Resp BP Pulse Ox O2 Del Method 03/21/23 08:00 98 Room Air 03/21/23 09:00 Room Air 03/21/23 07:41 97.5 F L 80 18 145/90 H 96 Room Air 03/21/23 06:34 Room Air 03/21/23 04:53 Room Air 03/21/23 04:00 98.2 F 67 18 144/75 H 96 Room Air 03/21/23 03:00 Room Air 03/21/23 00:39 Room Air 03/20/23 23:51 97.6 F 81 18 126/72 94 L Room Air 03/20/23 22:48 Room Air 03/20/23 20:00 98 Room Air 03/20/23 21:00 Room Air 03/20/23 20:00 98.2 F 81 18 155/93 H 98 Room Air 03/20/23 18:34 Room Air 03/20/23 17:00 Room Air 03/20/23 15:00 Room Air 03/20/23 16:00 97.6 F 88 17 158/92 H 96 Room Air 03/20/23 13:00 Room Air 03/20/23 11:48 98.2 F 77 16 143/62 H 97 Room Air 03/20/23 11:00 Room Air Intake and Output 03/20/23 03/21/23 03/21/23 23:59 07:59 15:59 Intake Total 752 / 2350 480 / 480 Output Total 100 / 100 0 / 0 Balance 652 / 2250 480 / 480 0 / 480 Intake: Intake, Oral Amount 240 / 830 180 / 180 Intake, Oral Supplement Amount 300 / 300 Intake, Total IV Amount 512 / 1220 0.9 % Sodium Chloride 1000ML 1, 512 / 1220 000 ml @ 50 mls/hr IV .Q20H [facility] Rx#:[id number] Output: Output, Urine Amount 100 / 100 0 / 0 Other: Number of Unmeasured Voids 1 0 Number of Bowel Movements 1 Weight 64.892 kg Patient Weight 03/21/23 23:59 Weight 64.892 kg Laboratory Results - last 24 hr 03/21/23 07:53: Sodium 142, Potassium 4.0, Chloride 108 H, Carbon Dioxide 26, Anion Gap 12.0, BUN 4 L, Creatinine 0.60, Estimated Creat Clear 59, Estimated GFR 101, Est GFR ( Amer) 122, Glucose 94, Calcium 8.1 L, Total Bilirubin 0.3, AST 21, ALT 18, Alkaline Phosphatase 76, Total Protein 5.7 L, Albumin 3.1 L, Globulin 2.6, Albumin/Globulin Ratio 1.2 I & O for Labs for Last 24 Hours: Intake & Output 03/18/23 03/19/23 03/20/23 03/21/23 23:59 23:59 23:59 23:59 Intake Total 1080 / 1140 1433 / 1433 2050 / 2350 480 / 480 Output Total 500 / 900 800 / 800 100 / 100 0 / 0 Balance 580 / 240 633 / 633 1950 / 2250 480 / 480 Weight 65 kg 63.304 kg 66.179 kg 64.892 kg The patient's infection will respond to the chosen ABx?: Yes Is the patient receiving the right drug, dose, and route?: Yes Could a more targeted ABx be ordered?: No (culture and sensitivities show s to ceftriaxone)
[2023-03-21 11:07] VITALS: BP 159/88; PULSE 82; RESP 16; TEMP 36.6; O2SAT 96
--- NOTE | 2023-03-21 12:27 | PC.NURSE ---
Rounded on patient. She denies having any questions or concerns at this time.
--- NOTE | 2023-03-21 14:13 | PC.NURSE ---
Courtesy Round Rounded on patient .Patient up in chair and waiting on lunch. Trash emptied and linens . Call light within reach and reminded to call out when needing help.
[2023-03-21 15:01] VITALS: BP 158/88; PULSE 83; RESP 18; TEMP 36.6; O2SAT 97
[2023-03-21 20:00] VITALS: BP 180/97; PULSE 81; RESP 18; TEMP 36.5; O2SAT 95
[2023-03-22] VITALS: BP 148/82; PULSE 82; RESP 18; TEMP 36.4; O2SAT 94
--- NOTE | 2023-03-22 02:35 | EXP.PN ---
Subjective *Date: 03/21/23 *Time: 08:00 Interval history: This is a late entry for patient encounter on 03/21/23. No acute events overnight. Exam Data for Last 24 hours Vital signs and Labs for Last 24 Hours: Temp Pulse Resp BP Pulse Ox O2 Del Method 97.6 F 82 18 148/82 H 94 L Room Air 03/22/23 00:00 03/22/23 00:00 03/22/23 00:00 03/22/23 00:00 03/22/23 00:00 03/22/23 00:53 Laboratory Results - last 24 hr 03/21/23 07:53: Sodium 142, Potassium 4.0, Chloride 108 H, Carbon Dioxide 26, Anion Gap 12.0, BUN 4 L, Creatinine 0.60, Estimated Creat Clear 59, Estimated GFR 101, Est GFR ( Amer) 122, Glucose 94, Calcium 8.1 L, Total Bilirubin 0.3, AST 21, ALT 18, Alkaline Phosphatase 76, Total Protein 5.7 L, Albumin 3.1 L, Globulin 2.6, Albumin/Globulin Ratio 1.2 I & O for Last 24 hours: Intake & Output 03/19/23 03/20/23 03/21/23 03/22/23 23:59 23:59 23:59 23:59 Intake Total 1433 / 1433 2050 / 2350 680 / 1249 569 / 569 Output Total 800 / 800 100 / 100 Balance 633 / 633 1950 / 2250 679 / 1248 569 / 569 Weight 63.304 kg 66.179 kg 64.892 kg Microbiology Reports for the Last 24 Hours: Microbiology 03/16/23 17:13 Blood Blood Culture - Final NO GROWTH AFTER 5 DAYS 03/16/23 16:08 Blood Blood Culture - Final NO GROWTH AFTER 5 DAYS Constitutional Constitutional: no acute distress *Routine HEENT Exam Head: Present normocephalic Eye: Present EOMI and PERRL ENT: Present mucous membranes moist *Routine Neck Exam Neck: Present supple; Absent lymphadenopathy *Routine Respiratory Exam Respiratory: Present CTA bilaterally *Routine Cardiovascular Exam Cardiovascular: Present RRR *Routine Abdominal Exam Abdominal: Present soft and normoactive bowel sounds; Absent tenderness *Routine Extremities Exam Extremities: Absent cyanosis, clubbing or edema *Routine Skin Exam Skin: Present warm; Absent rash *Routine Neurological Exam Neurological: Present alert and oriented X3 (oriented to person, hospital and year.); Absent tremors Assessment and Plan *Assessment and plan (1) Toxic encephalopathy: Status: Acute Category: Medical Code(s): G92.9 - Unspecified toxic encephalopathy (2) Rhabdomyolysis: Status: Acute Qualifiers: Rhabdomyolysis type: non-traumatic Qualified Code(s): M62.82 - Rhabdomyolysis Category: Medical Code(s): M62.82 - Rhabdomyolysis (3) UTI (urinary tract infection): Status: Acute Qualifiers: Hematuria presence: with hematuria Urinary tract infection type: acute cystitis Qualified Code(s): N30.01 - Acute cystitis with hematuria Category: Medical Code(s): N39.0 - Urinary tract infection, site not specified (4) Acute hypokalemia: Status: Acute Category: Medical Code(s): E87.6 - Hypokalemia (5) Seizure disorder: Status: Chronic Category: Medical Code(s): G40.909 - Epilepsy, unspecified, not intractable, without status epilepticus (6) Hypertension: Status: Chronic Qualifiers: Hypertension type: unspecified Qualified Code(s): I10 - Essential (primary) hypertension Category: Medical Code(s): I10 - Essential (primary) hypertension (7) Depression: Status: Chronic Qualifiers: Active/Remission status: currently active Depression Type: major depressive disorder Major depression episode severity: severe Major depression recurrence: recurrent Psychotic features: with psychotic features Qualified Code(s): F33.3 - Major depressive disorder, recurrent, severe with psychotic symptoms Category: Medical Code(s): F32.A - Depression, unspecified (8) Hypokalemia: Status: Acute Category: Medical Code(s): E87.6 - Hypokalemia Plan #acute vs chronic encephalopathy #e. coli UTI #hypokalemia, resolved #seizure disorder
[2023-03-22 04:00] VITALS: BP 150/60; PULSE 73; RESP 18; TEMP 36.9; O2SAT 95; BMI 22.1
--- NOTE | 2023-03-22 04:36 | PC.NURSE ---
PATIENT A/O TO SELF AND PLACE. ATTEMPTS TO CRAWL OOB. BED ALARM ON. VITAL SIGNS STABLE/AFEBRILE. NO C/O PAIN OR DISCOMFORT. AFFECT FLAT. COOPERATIVE. NO SEIZURE ACTIVITY NOTED. SIDE RAILS PADDED.
--- NOTE | 2023-03-22 05:49 | PC.NURSE ---
Patient pulled her iv out.
[2023-03-22 07:13] LABS: Basophils % 0.3 % (0.1-2.0); Eosinophils # 0.2 K/mm3 (0.0-0.4); Eosinophils % 4.7 % (0.1-12.0); Hematocrit 41.7 % (37.0-47.0); Hemoglobin 13.8 g/dL (12.2-16.2); Lymphocytes # 1.5 K/mm3 (0.7-4.5); Lymphocytes % 35.8 % (10-50); Mean Corpuscular Hemoglobin 29.1 pg (27.0-31.2); Mean Corpuscular Volume 88.1 fl (81-99); Mean Platelet Volume 8.8 fl (7.4-10.4); Monocytes # 0.3 K/mm3 (0.1-1.0); Monocytes % 7.3 % (1.7-9.3); Neutrophils # 2.2 K/mm3 (1.8-7.8); Neutrophils % 51.8 % (37.0-80.0); Platelet Count 213 K/mm3 (142-424); Red Blood Count 4.74 M/mm3 (4.20-5.40); Red Cell Distribution Width 15.5 % (11.5-17.5); White Blood Count 4.2 K/mm3 (4.8-10.8)
[2023-03-22 08:00] VITALS: BP 152/88; PULSE 73; RESP 16; TEMP 35.9; O2SAT 97; O2SAT 98
[2023-03-22 08:15] LABS: Blood Urea Nitrogen 4 mg/dl (7-17); Calcium 8.8 mg/dl (8.4-10.2); Carbon Dioxide 29 mmol/L (22.0-30.0); Chloride 104 mmol/L (98-107); Creatinine Clearance Estimated 57 mL/min (50-200); Estimated Glomerular Filt Rate 101 ml/min (>60); GFR (African American) 122 ML/MIN (>60); Glucose 84 mg/dl (74-100); Sodium 142 mmol/L (136-145)
--- NOTE | 2023-03-22 09:34 | EXP.DC.SUM ---
General Admission date:: 03/16/23 Discharge date: 03/22/23 HPI HPI HPI: Forwarded from Admission H&P: This is a 62-year-old female resident of foster home who was brought by EMS after being found outside lying down in a parking lot. During the assessment patient still confused, on altered mental status. History obtained from discussion made with the ER doctor, and EMS reports. EMS report stated that no one was with her and patient is unable to provide further history. According to medical record review, patient has a history of seizure disorder, hypothyroidism, COPD, hyperlipidemia, and hypertension. Some of her medications records are clonazepam, Keppra, risperidone, trazodone, venlafaxine, levothyroxine, donepezil, and carvedilol. Per ER doctor patient was warm to the touch upon arrival. There was a concern for heat stroke. She continue disoriented and is only able to tell me her name, but is not able to provide further history as she currently thinks that she is at [facility]. Admitted for treatment. Hospital Course Hospital Course Hospital Course: #acute vs chronic encephalopathy #e. coli UTI #hypokalemia, resolved #seizure disorder #hypothyroidism The patient's mental status improved gradually after we discontinued her clonazepam and Effexor and reduced the doses of her Seroquel and sertraline. By the day of discharge she was eating well, was alert, conversational with fluent speech, but oriented only to person, which is near her baseline. We treated her for a possible UTI with 4 days of Rocephin; urine culture grew e. coli 80-90K; her UA from day of admission was with 3-5 wbcs, she hadn't complained of urinary symptoms. She will be discharging to [facility] for PT/OT/residential. Exam Data for Last 24 hours Vital signs and Labs for Last 24 Hours: Temp Pulse Resp BP Pulse Ox O2 Del Method 96.6 F L 73 16 152/88 H 98 Room Air 03/22/23 08:00 03/22/23 08:00 03/22/23 08:00 03/22/23 08:00 03/22/23 08:00 03/22/23 08:03 Laboratory Results - last 24 hr 03/22/23 06:31: WBC 4.2 L, RBC 4.74, Hgb 13.8, Hct 41.7, MCV 88.1, MCH 29.1, MCHC 33.0, RDW 15.5, Plt Count 213, MPV 8.8, Neut % (Auto) 51.8, Lymph % (Auto) 35.8, [place] % (Auto) 7.3, Eos % (Auto) 4.7, Baso % (Auto) 0.3, Neut # (Auto) 2.2, Lymph # (Auto) 1.5, [place] # (Auto) 0.3, Eos # (Auto) 0.2, Baso # (Auto) 0.0, Sodium 142, Potassium 4.0, Chloride 104, Carbon Dioxide 29, Anion Gap 13.0, BUN 4 L, Creatinine 0.60, Estimated Creat Clear 57, Estimated GFR 101, Est GFR ( Amer) 122, Glucose 84, Calcium 8.8 I & O for Last 24 hours: Intake & Output 03/19/23 03/20/23 03/21/23 03/22/23 23:59 23:59 23:59 23:59 Intake Total 1433 / 1433 2050 / 2350 680 / 1249 1103 / 1103 Output Total 800 / 800 100 / 100 1 / Balance 633 / 633 1950 / 2250 679 / 1248 1103 / 1103 Weight 63.304 kg 66.179 kg 64.892 kg 62.397 kg Microbiology Reports for the Last 24 Hours: Microbiology 03/16/23 17:13 Blood Blood Culture - Final NO GROWTH AFTER 5 DAYS 03/16/23 16:08 Blood Blood Culture - Final NO GROWTH AFTER 5 DAYS Constitutional Constitutional: no acute distress *Routine HEENT Exam Head: Present normocephalic Eye: Present EOMI and PERRL ENT: Present mucous membranes moist *Routine Neck Exam Neck: Present supple; Absent lymphadenopathy *Routine Respiratory Exam Respiratory: Present CTA bilaterally *Routine Cardiovascular Exam Cardiovascular: Present RRR *Routine Abdominal Exam Abdominal: Present soft and normoactive bowel sounds; Absent tenderness *Routine Extremities Exam Extremities: Absent cyanosis, clubbing or edema *Routine Skin Exam Skin: Present warm; Absent rash *Routine Neurological Exam Neurological: Present alert; Absent tremors Comments: Oriented to person but not to place or year. Results Data Completed and Pending Labs on day of discharge: Labs from last 24 hours 03/22/23
--- NOTE | 2023-03-22 12:18 | PC.NURSE ---
Called report to Xavi Sánchez and asked to call back in 20 minutes.
--- NOTE | 2023-03-22 13:16 | PC.NURSE ---
report called to elvia herrmann.
== END 2023-03-22 15:22 | DRG 93 ==
LOC: ER 20:07 → 2ND 03-17 01:24
PROVIDERS: Internal Medicine; Nurse Practitioner Family; Admitting Provider Internal Medicine Adolescent Medicine; Emergency Provider Emergency Medicine; Visit Provider Internal Medicine Adolescent Medicine
DX: G92.9 Unspecified toxic encephalopathy; E87.6 Hypokalemia; R74.8 Abnormal levels of other serum enzymes; G40.909 Epilepsy, unspecified, not intractable, without status epilepticus; I10 Essential (primary) hypertension; E03.9 Hypothyroidism, unspecified; E78.5 Hyperlipidemia, unspecified; F03.90 Unspecified dementia, unspecified severity, without behavioral disturbance, psychotic disturbance, mood disturbance, and anxiety; F32.A Depression, unspecified; B96.20 Unspecified Escherichia coli [E. coli] as the cause of diseases classified elsewhere
CPT/HCPCS: 36415; 70450; 71045; 72125; 73502; 73552; 80048; 80053; 80061; 80305; 80329; 81001; 82550; 82803; 83605; 83735; 84100; 84436; 84443; 84484; 85007; 85014; 85018; 85025; 85048; 85049; 87040; 87086; 87088; 87186; 93005; 97110; 97116; 97163; 97166; 97530; 99291; J0131; J0696; J2543; J3475